=== PATIENT | female | born 1995 | race Caucasian/White ===

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

== ENCOUNTER 2017-01-07 12:23 | Emergency (ER) | payer MEDICAID ==
[2017-01-07 12:32] VITALS: BP 144/89
[2017-01-07 12:49] LABS: BASOPHILS # (AUTO) 0.1 10^3/uL (0.0-0.1); BASOPHILS % (AUTO) 1.1 %; EOSINOPHILS # (AUTO) 0.3 10^3/uL (0.0-0.7); EOSINOPHILS % (AUTO) 3.5 %; HCT - HEMATOCRIT 37.8 % (37.0-47.0); HGB - HEMOGLOBIN 12.4 g/dL (12.0-16.0); LYMPHOCYTES # (AUTO) 3.1 10^3/uL (1.5-3.5); LYMPHOCYTES % (AUTO) 40.9 %; MEAN CORPUSCULAR HEMOGLOBIN 25.9 pg (27.0-31.0); MEAN CORPUSCULAR HGB CONC 32.7 g/dL (32.0-36.0); MEAN CORPUSCULAR VOLUME 79.3 fL (81.0-99.0); MEAN PLATELET VOLUME 8.7 fL (7.9-10.8); MONOCYTES # (AUTO) 0.5 10^3/uL (0.0-1.0); MONOCYTES % (AUTO) 6.7 %; NEUTROPHILS # (AUTO) 3.6 10^3/uL (1.5-6.6); NEUTROPHILS % (AUTO) 47.8 %; NUCLEATED RED BLOOD CELLS AUTO 0.1 /100WBC; RED BLOOD COUNT 4.77 10^6/uL (4.20-5.40); RED CELL DISTRIBUTION WIDTH 13.1 % (12.0-15.0); UNCORRECTED WHITE BLOOD COUNT 7.5 x10^3/uL; WHITE BLOOD COUNT 7.5 x10^3/uL (4.8-10.8)
[2017-01-07 12:57] LABS: HCG UR QUAL NEGATIVE
--- NOTE | 2017-01-07 13:01 | ED Physician Documentation ---
PD HPI FEMALE - Stated complaint Stated Complaint: FEMALE - Chief complaint Chief Complaint: Abd Pain - History obtained from History obtained from: Patient - History of Present Illness Pain level max: 5 Pain level max: 3 Associated symptoms: No: Fever, Dysuria, Urinary frequency, Hematuria Similar symptoms before: Diagnosis (PCOS) - Additional information Additional information: Patient is a 21-year-old female who presents to the emergency department with several months worth of intermittent vaginal bleeding, off of her menstrual cycle. States she saw her primary care provider was started on control pills but is now stopped this the bleeding is returned. Saw gynecology yesterday who prescribed her new medication which she has not picked up from the pharmacy yet. Has continued bleeding today so came for evaluation. States had an ultrasound a week ago which revealed polycystic ovaries. She denies any . States occasionally feels lightheaded, but not lightheaded currently. Has had no syncopal events. 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 HEENT: Other Psych: Depression, Bipolar disorder - Past Surgical History Past Surgical History: Yes General: Cholecystectomy Ortho: Arthroscopic surgery HEENT: Tonsil/Adenoidectomy - Present Medications Home Medications: Ambulatory Orders Medication Instructions Recorded Confirmed metFORMIN [Glucophage] 500 mg PO DAILY 07/17/16 01/07/17 Folic Acid 4 mg PO DAILY 09/25/16 01/07/17 buPROPion [Wellbutrin Sr] 100 mg PO BID 01/07/17 01/07/17 - Allergies Allergies/Adverse Reactions: Allergies Allergy/AdvReac Type Severity Reaction Status Date / Time Penicillins Allergy Hives Verified 01/07/17 12:32 Sulfa (Sulfonamide AdvReac Intermediate Rash Verified 01/07/17 12:32 Antibiotics) - Social History Does the pt smoke?: No Smoking Status: Never smoker Does the pt drink ETOH?: No Does the pt have substance abuse?: No - Immunizations Immunizations are current?: Yes - POLST Patient has POLST: No PD ED PE NORMAL - Vitals Vital signs reviewed: Yes - General General: Alert and oriented X 3, No acute distress, Well developed/nourished - HEENT HEENT: PERRL, Moist mucous membranes - Neck Neck: Supple, no meningeal sign - Cardiac Cardiac: RRR, Strong equal pulses - Respiratory Respiratory: No respiratory distress, Clear bilaterally - Abdomen Abdomen: Soft, Non tender, Non distended - Derm Derm: Warm and dry - Neuro Neuro: Alert and oriented X 3 - Psych Psych: Normal mood, Normal affect Results - Vitals Vitals: Vital Signs - 24 hr 01/07/17 12:29 Temperature 36.8 C Heart Rate 82 Respiratory 16 Rate Blood Pressure 144/89 H O2 Saturation 99 Oxygen O2 Source Room air - Labs Labs: Laboratory Tests 01/07/17 01/07/17 01/07/17 12:32 12:45 12:45 WBC 7.5 RBC 4.77 Hgb 12.4 Hct 37.8 MCV 79.3 L MCH 25.9 L MCHC 32.7 RDW 13.1 Plt Count 305 MPV 8.7 Neut # 3.6 Lymph # 3.1 [place] # 0.5 Eos # 0.3 Baso # 0.1 Absolute Nucleated RBC 0.01 Nucleated RBC % 0.1 Sodium 138 Potassium 3.7 Chloride 104 Carbon Dioxide 25 Anion Gap 9.0 BUN 18 Creatinine 0.9 Estimated GFR (MDRD) 81 L Glucose 118 H Calcium 9.6 Total Bilirubin 0.5 AST 26 ALT 30 Alkaline Phosphatase 55 Total Protein 7.8 Albumin 4.4 Globulin 3.4 Albumin/Globulin Ratio 1.3 Lipase 13 L Ur Specific [place] 1.020 Urine HCG, Qual NEGATIVE PD MEDICAL DECISION MAKING - ED course Complexity details: reviewed results, re-evaluated patient, considered differential, d/w patient, d/w marketing database consultant ED course: Patient is a 21-year-old female who presents to the emergency department with continued menorrhagia. She saw gynecology yesterday, normal hemoglobin today. She is well-appearing, nontoxic. Afebrile. No syncope. Discussed the case with Dr. Bhatti, gynecology who rewrote her prescription for her and will follow up in the office. Prescription was handed to the patient. Patient counseled regarding signs and symptoms for which I believe and urgent re-evaluation would be necessary. Patient with good understanding of and agreement to plan and is comfortable going home at this time This document was made in part using voice recognition software. While efforts are made to proofread this document, sound alike and grammatical errors may occur. Departure - Departure Disposition: 01 Home, Self Care Clinical Impression: Menorrhagia Qualifiers: Menorrahagia type: with irregular cycle Qualified Code(s): N92.1 - Excessive and frequent menstruation with irregular cycle Condition: Good Instructions: ED Bleeding Menstrual Heavy Follow-Up: Veronica Hong ARNP [Primary Care Provider] - Clifford Bhatti MD [Provider Admit Priv/Credential] - Comments: Follow up as directed by Dr. Bhatti today. Your blood counts are normal Discharge Date/Time: 01/07/17 13:23
[2017-01-07 13:02] LABS: ALBUMIN/GLOBULIN RATIO 1.3 (1.0-2.2); BILIRUBIN,TOTAL 0.5 mg/dL (0.2-1.0); CALCIUM 9.6 mg/dL (8.5-10.3); CREATININE 0.9 mg/dL (0.4-1.0); POTASSIUM 3.7 mmol/L (3.5-5.0); TOTAL PROTEIN 7.8 g/dL (6.7-8.2)
== END 2017-01-07 13:23 | disposition home or self-care (01) ==
LOC: ED 12:23
DX: N92.1 Excessive and frequent menstruation with irregular cycle (principal)
CPT/HCPCS: 36415; 80053; 81025; 83690; 85025; 99282; 99283

== ENCOUNTER 2017-02-03 13:25 | Outpatient (CLI) | payer MEDICAID, OTHER | END 2017-02-03 13:26 | disposition home or self-care (01) | LOC: LAB.R 13:25 | PROVIDERS: ATTEND Nurse Practitioner Family | DX: N76.0 Acute vaginitis (principal) | CPT/HCPCS: 87070; 87205; 87491; 87591 ==

== ENCOUNTER 2017-02-15 17:03 | Emergency (ER) | payer MEDICAID ==
[2017-02-15] MEDS ORDERED: BENZONATATE 100 MG CAPSULE PO STA (17:19)
--- NOTE | 2017-02-15 17:21 | ED Physician Documentation ---
PD HPI URI - Stated complaint Stated Complaint: COUGH/THROAT PAIN - Chief complaint Chief Complaint: Resp - History obtained from History obtained from: Patient - History of Present Illness Timing - onset: Other (3 days of productive cough with green sputum and some shortness of breath as well as posttussive emesis and chills but no fevers. She is trying to get . She is currently on metronidazole for bacterial vaginosis.) Review of Systems Constitutional: reports: Chills, Fatigue. denies: Fever Ears: denies: Ear pain Nose: reports: Rhinorrhea / runny nose, Congestion Throat: reports: Sore throat Cardiac: reports: Chest pain / pressure (Only with coughing) Respiratory: reports: Cough GI: reports: Vomiting. 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 HEENT: Other Psych: Depression, Bipolar disorder Other Past Medical History: PCOS - Past Surgical History Past Surgical History: Yes General: Cholecystectomy Ortho: Arthroscopic surgery HEENT: Tonsil/Adenoidectomy - Present Medications Home Medications: Ambulatory Orders Medication Instructions Recorded Confirmed metFORMIN [Glucophage] 500 mg PO DAILY 07/17/16 01/07/17 Folic Acid 4 mg PO DAILY 09/25/16 01/07/17 buPROPion [Wellbutrin Sr] 100 mg PO BID 01/07/17 01/07/17 Azithromycin [Zithromax] 250 mg PO DAILY #4 tablet 02/15/17 Benzonatate [Tessalon] 200 mg PO TID PRN #20 capsule 02/15/17 - Allergies Allergies/Adverse Reactions: Allergies Allergy/AdvReac Type Severity Reaction Status Date / Time Penicillins Allergy Hives Verified 02/15/17 17:15 Sulfa (Sulfonamide AdvReac Intermediate Rash Verified 02/15/17 17:15 Antibiotics) - Social History Does the pt smoke?: No Smoking Status: Never smoker Does the pt drink ETOH?: No Does the pt have substance abuse?: No - Immunizations Immunizations are current?: Yes - POLST Patient has POLST: No PD ED PE NORMAL - Vitals Vital signs reviewed: Yes (Tachycardic) - General General: Alert and oriented X 3, No acute distress - HEENT HEENT: PERRL, EOMI, Other (Sclerosis of the right TM especially from prior otitis media and tubes, but no active otitis media.) - Neck Neck: Supple, no meningeal sign, No bony TTP - Cardiac Cardiac: RRR, No murmur - Respiratory Respiratory: No respiratory distress, Clear bilaterally - Abdomen Abdomen: Soft, Non tender - Derm Derm: Normal color, Warm and dry, No rash - Extremities Extremities: No edema, No calf tenderness / cord - Neuro Neuro: Alert and oriented X 3, Normal speech Results - Vitals Vitals: Vital Signs - 24 hr 02/15/17 02/15/17 17:12 17:44 Temperature 36.9 C 36.8 C Heart Rate 122 H 73 Respiratory 20 18 Rate Blood Pressure 132/71 H 128/56 L O2 Saturation 100 100 Oxygen O2 Source Room air - Labs Labs: Laboratory Tests 02/15/17 17:23 Ur Specific [place] >=1.030 H Urine HCG, Qual NEGATIVE - Rads (name of study) 2v chest Radiology: EMP read contemporaneously (bronchitis with RLL PNA) Departure - Departure Disposition: 01 Home, Self Care Clinical Impression: Pneumonia Qualifiers: Pneumonia type: due to unspecified organism Laterality: right Lung location: lower lobe of lung Qualified Code(s): J18.1 - Lobar pneumonia, unspecified organism Condition: Good Record reviewed to determine appropriate education?: Yes Instructions: Pneumonia Dc Prescriptions: Azithromycin [Zithromax] 250 mg PO DAILY #4 tablet Benzonatate [Tessalon] 200 mg PO TID PRN #20 capsule PRN Reason: Cough Comments: Followup with your doctor in about 3 days, return if worse.
[2017-02-15] MEDS ORDERED: BENZONATATE 100 MG CAPSULE PO ONE (17:32)
[2017-02-15 17:35] LABS: HCG UR QUAL NEGATIVE
--- NOTE | 2017-02-15 17:54 | XRAY Preliminary Report ---
Exam: XR CHEST 2 VIEW PA/LAT IMPRESSION: 1. Bilateral central bronchial wall thickening to be compatible with reactive airways disease or bron chitis. 2. Probable mild superimposed right lower lobe pneumonia. [facility] SITE ID: [id number]
--- NOTE | 2017-02-15 17:57 | XRAY Report ---
EXAM: CHEST RADIOGRAPHY EXAM DATE: 02/15/2017 05:44 PM. CLINICAL HISTORY: Cough, wait for preg test. COMPARISON: None. TECHNIQUE: 2 views. FINDINGS: Lungs/Pleura: Bilateral central bronchial wall thickening could be compatible with reactive airways d isease or bronchitis. Superimposed hazy right lower lobe opacities could reflect pneumonia. No focal left-sided consolidation seen. No pleural effusion or pneumothorax. Mediastinum: Heart and mediastinal contours are unremarkable. Other: None. IMPRESSION: 1. Bilateral central bronchial wall thickening to be compatible with reactive airways disease or bron chitis. 2. Probable mild superimposed right lower lobe pneumonia. [facility] Referring Provider Line: [phone] SITE ID: [id number]
[2017-02-15] MEDS ORDERED: AZITHROMYCIN 250 MG TABLET PO STA (18:14)
[2017-02-15] MEDS ORDERED: AZITHROMYCIN 250 MG TABLET PO ONE ×2 (18:28→18:39)
[2017-02-15 18:42] VITALS: BP 124/60
== END 2017-02-15 18:40 | disposition home or self-care (01) ==
LOC: ED 17:03
DX: J18.9 Pneumonia, unspecified organism (principal)
CPT/HCPCS: 71020; 81025; 99283; A9270

== ENCOUNTER 2017-03-05 15:48 | Outpatient (CLI) | payer MEDICAID | END 2017-03-05 15:49 | disposition home or self-care (01) | LOC: LAB 15:48 | PROVIDERS: ATTEND Obstetrics & Gynecology | DX: N97.0 Female infertility associated with anovulation (principal) | CPT/HCPCS: 36415; 84144 ==

== ENCOUNTER 2017-06-03 17:07 | Outpatient (CLI) | payer MEDICAID ==
[2017-06-03 18:02] LABS: HB2 TOTAL 13.8 g/dL; HEMOGLOBIN A1C 0.51 g/dL; HEMOGLOBIN A1C % 5.5 % (4.6-6.2)
== END 2017-06-03 17:08 | disposition home or self-care (01) ==
LOC: LAB 17:07
PROVIDERS: ATTEND Obstetrics & Gynecology
DX: Z13.1 Encounter for screening for diabetes mellitus (principal)
CPT/HCPCS: 36415; 83036

== ENCOUNTER 2017-06-13 11:34 | Emergency (ER) | payer MEDICAID ==
[2017-06-13 12:16] LABS: BILIRUBIN,URINE NEGATIVE (NEGATIVE); GLUCOSE, URINE (UA) NEGATIVE (NEGATIVE); KETONES,URINE (UA) NEGATIVE (NEGATIVE); LEUKOCYTE ESTERASE, URINE NEGATIVE (NEGATIVE); NITRITE,URINE NEGATIVE (NEGATIVE); OCCULT BLOOD,URINE NEGATIVE (NEGATIVE); PH,URINE 7.5 PH (5.0-7.5); PROTEIN,URINE NEGATIVE (NEGATIVE); UROBILINOGEN,URINE 0.2 (NORMAL) E.U./dL (NORMAL)
[2017-06-13 12:21] LABS: CLARITY,URINE CLEAR (CLEAR); HCG UR QUAL NEGATIVE
[2017-06-13] MEDS ORDERED: SODIUM CHLORIDE 0.9% 1,000 ML IV ONE ×2 (12:38→13:07)
[2017-06-13 12:48] LABS: BASOPHILS # (AUTO) 0.1 10^3/uL (0.0-0.1); BASOPHILS % (AUTO) 0.6 %; EOSINOPHILS % (AUTO) 0.2 %; HGB - HEMOGLOBIN 12.4 g/dL (12.0-16.0); LYMPHOCYTES # (AUTO) 2.7 10^3/uL (1.5-3.5); LYMPHOCYTES % (AUTO) 18.7 %; MEAN CORPUSCULAR HGB CONC 32.8 g/dL (32.0-36.0); MEAN CORPUSCULAR VOLUME 76.2 fL (81.0-99.0); MEAN PLATELET VOLUME 8.6 fL (7.9-10.8); MONOCYTES # (AUTO) 0.8 10^3/uL (0.0-1.0); MONOCYTES % (AUTO) 5.5 %; PLT - PLATELET COUNT 376 10^3/uL (130-450); RED BLOOD COUNT 4.95 10^6/uL (4.20-5.40); RED CELL DISTRIBUTION WIDTH 14.2 % (12.0-15.0); WHITE BLOOD COUNT 14.6 x10^3/uL (4.8-10.8)
[2017-06-13 13:05] LABS: ALBUMIN 4.5 g/dL (3.2-5.5); ALBUMIN/GLOBULIN RATIO 1.3 (1.0-2.2); BILIRUBIN,TOTAL 0.6 mg/dL (0.2-1.0); CALCIUM 9.4 mg/dL (8.5-10.3); CREATININE 0.8 mg/dL (0.4-1.0); TOTAL PROTEIN 8.1 g/dL (6.7-8.2)
[2017-06-13] MEDS ORDERED: ONDANSETRON 4 MG/2 ML VIAL IVP STA (13:07)
--- NOTE | 2017-06-13 13:12 | ED Physician Documentation ---
PD HPI ABD PAIN - Stated complaint Stated Complaint: ABD PX/VOMITING/SHAKEY - Chief complaint Chief Complaint: Abd Pain - History obtained from History obtained from: Patient - History of Present Illness Timing - onset: Last night (Was drinking etoh heavy last night. Started vomiting last night and today with persistent vomiting, no blood. 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, Other HEENT: Other Psych: Depression, Bipolar disorder - Past Surgical History Past Surgical History: Yes General: Cholecystectomy Ortho: Arthroscopic surgery HEENT: Tonsil/Adenoidectomy - Present Medications Home Medications: Ambulatory Orders Medication Instructions Recorded Confirmed metFORMIN [Glucophage] 500 mg PO DAILY 07/17/16 03/19/17 Folic Acid 4 mg PO DAILY 09/25/16 01/07/17 buPROPion [Wellbutrin Sr] 100 mg PO BID 01/07/17 03/19/17 Ondansetron HCl [Zofran] 4 mg PO Q6H PRN #10 tablet 06/13/17 - Allergies Allergies/Adverse Reactions: Allergies Allergy/AdvReac Type Severity Reaction Status Date / Time Penicillins Allergy Hives Verified 06/13/17 11:47 Sulfa (Sulfonamide AdvReac Intermediate Rash Verified 06/13/17 11:47 Antibiotics) - Social History Does the pt smoke?: No Smoking Status: Never smoker Does the pt drink ETOH?: No Does the pt have substance abuse?: No - Immunizations Immunizations are current?: Yes - POLST Patient has POLST: No PD ED PE NORMAL - Vitals Vital signs reviewed: Yes - General General: Alert and oriented X 3, No acute distress - HEENT HEENT: Pharynx benign - Neck Neck: Supple, no meningeal sign, No bony TTP - Cardiac Cardiac: RRR, No murmur - Respiratory Respiratory: No respiratory distress, Clear bilaterally - Abdomen Abdomen: Normal bowel sounds, Soft, Non tender - Neuro Neuro: Alert and oriented X 3, Normal speech Results - Vitals Vitals: Vital Signs - 24 hr 06/13/17 11:44 Temperature 36.9 C Heart Rate 115 H Respiratory 22 Rate Blood Pressure 147/95 H O2 Saturation 99 Oxygen O2 Source Room air - Labs Labs: Laboratory Tests 06/13/17 06/13/17 06/13/17 12:00 12:30 12:30 WBC 14.6 H RBC 4.95 Hgb 12.4 Hct 37.7 MCV 76.2 L MCH 25.0 L MCHC 32.8 RDW 14.2 Plt Count 376 MPV 8.6 Neut # 11.0 H Lymph # 2.7 [place] # 0.8 Eos # 0.0 Baso # 0.1 Absolute Nucleated RBC 0.02 Nucleated RBC % 0.1 Sodium 137 Potassium 3.8 Chloride 104 Carbon Dioxide 22 Anion Gap 11.0 BUN 12 Creatinine 0.8 Estimated GFR (MDRD) 91 Glucose 99 Calcium 9.4 Total Bilirubin 0.6 AST 40 ALT 42 Alkaline Phosphatase 62 Total Protein 8.1 Albumin 4.5 Globulin 3.6 Albumin/Globulin Ratio 1.3 Lipase 10 L Urine Color YELLOW Urine Clarity CLEAR Urine pH 7.5 Ur Specific [place] 1.020 Urine Protein NEGATIVE Urine Glucose (UA) NEGATIVE Urine Ketones NEGATIVE Urine Occult Blood NEGATIVE Urine Nitrite NEGATIVE Urine Bilirubin NEGATIVE Urine Urobilinogen 0.2 (NORMAL) Ur Leukocyte Esterase NEGATIVE Ur Microscopic Review NOT INDICATED Urine Culture Comments NOT INDICATED Urine HCG, Qual NEGATIVE PD MEDICAL DECISION MAKING - ED course ED course: This is a 22-year-old woman with what seems like a hangover, she is administered IV fluids and Zofran with relief of her symptoms and tachycardia and passed an oral challenge. She is advised not to drink so heavily in the future. Departure - Departure Disposition: 01 Home, Self Care Clinical Impression: Hangover Qualifiers: Complication of substance-induced condition: uncomplicated Qualified Code(s): F10.120 - Alcohol abuse with intoxication, uncomplicated Condition: Good Record reviewed to determine appropriate education?: Yes Instructions: ED Nausea Vomiting Prescriptions: Ondansetron HCl [Zofran] 4 mg PO Q6H PRN #10 tablet PRN Reason: Nausea / Vomiting Comments: Your blood pressure was elevated today on check into the emergency department. This does not mean that you have hypertension, it is a common phenomenon to come to the emergency department and have elevated blood pressure. I recommend that you see your primary care physician within the week to have it rechecked when you are feeling better.
[2017-06-13 14:11] VITALS: BP 122/66
== END 2017-06-13 14:25 | disposition home or self-care (01) ==
LOC: ED 11:34
DX: F10.120 Alcohol abuse with intoxication, uncomplicated (principal); R03.0 Elevated blood-pressure reading, without diagnosis of hypertension
CPT/HCPCS: 36415; 80053; 81001; 81003; 81025; 83690; 85025; 87086; 96361; 96374; 99283

== ENCOUNTER 2017-08-29 22:25 | Emergency (ER) | payer MEDICAID ==
[2017-08-29 22:30] VITALS: BP 138/75
--- NOTE | 2017-08-29 22:37 | ED Physician Documentation ---
PD HPI HEENT - Stated complaint Stated Complaint: SOA/SORE THROAT - Chief complaint Chief Complaint: Heent - History obtained from History obtained from: Patient - History of Present Illness Timing - onset: Yesterday Timing - details: Abrupt onset (feeling of something in her throat. Not aware of unusual food. no choking symptoms. Normal voice and breathing. No prior similar. She has not had allergy symptoms nor infection symptoms (fever, nodes, nasal drainage).), Still present Associated symptoms: No: Fever, Congestion, Rhinorrhea, Swollen nodes Similar symptoms before: Diagnosis (has had strep throat in the past, with similar discomfort.) Recently seen: Not recently seen Review of Systems Constitutional: denies: Fever, Chills Nose: denies: Rhinorrhea / runny nose, Congestion Throat: reports: Sore throat Cardiac: denies: Chest pain / pressure, Palpitations Respiratory: denies: Dyspnea, Cough Neurologic: denies: Difficulty speaking PD PAST MEDICAL HISTORY - Past Medical History Cardiovascular: None Respiratory: None GI: Cholelithiasis, 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, Other HEENT: Other Psych: Depression, Bipolar disorder - Past Surgical History Past Surgical History: Yes General: Cholecystectomy Ortho: Arthroscopic surgery HEENT: Tonsil/Adenoidectomy - Present Medications Home Medications: Ambulatory Orders Medication Instructions Recorded Confirmed metFORMIN [Glucophage] 500 mg PO DAILY 07/17/16 03/19/17 Folic Acid 4 mg PO DAILY 09/25/16 01/07/17 buPROPion [Wellbutrin Sr] 100 mg PO BID 01/07/17 03/19/17 Ondansetron HCl [Zofran] 4 mg PO Q6H PRN #10 tablet 06/13/17 Cetirizine [ZyrTEC] 10 mg PO DAILY #20 tablet 08/29/17 Dexamethasone [Decadron] 4 mg PO DAILY #5 tablet 08/29/17 diphenhydrAMINE HCl 25 mg PO Q6H PRN #240 ml 08/29/17 [Diphenhydramine HCl] - Allergies Allergies/Adverse Reactions: Allergies Allergy/AdvReac Type Severity Reaction Status Date / Time Penicillins Allergy Hives Verified 08/29/17 22:30 Sulfa (Sulfonamide AdvReac Intermediate Rash Verified 08/29/17 22:30 Antibiotics) - Social History Does the pt smoke?: No Smoking Status: Never smoker Does the pt drink ETOH?: No Does the pt have substance abuse?: No - Immunizations Immunizations are current?: Yes - POLST Patient has POLST: No PD ED PE NORMAL - Vitals Vital signs reviewed: Yes - General General: Alert and oriented X 3, No acute distress, Well developed/nourished - HEENT HEENT: Ears normal, Moist mucous membranes, Dentition benign. No: Pharynx benign (minimal edema without redness nor exudate of uvula. Rest of mouth (gums , lips, palatte) without edema nor redness. ) - Neck Neck: Supple, no meningeal sign, No adenopathy - Cardiac Cardiac: RRR, No murmur - Respiratory Respiratory: Clear bilaterally - Neuro Neuro: Alert and oriented X 3, No motor deficit, No sensory deficit, Normal speech Eye Opening: Spontaneous Motor: Obeys Commands Verbal: Oriented GCS Score: 15 - Psych Psych: Normal mood. No: Normal affect (somewhat anxious) Results - Vitals Vitals: Oxygen O2 Source Room air PD MEDICAL DECISION MAKING - ED course Complexity details: considered differential (discomfort is upper espoahgus area so out of visible area on regular exam. Most likely irritation or allergy. Less likely infection. Even more unlikely to be polyp/tumor/etc, but that is what she is anxious about, having googled the problem. Will give referral to ENT if it is not resolving. ), d/w patient - Sepsis Event Vital Signs: Oxygen O2 Source Room air Departure - Departure Disposition: 01 Home, Self Care Clinical Impression: Throat discomfort Condition: Stable Record reviewed to determine appropriate education?: Yes Follow-Up: Veronica Hong ARNP [Primary Care Provider] - [facility] [Provider Group] Prescriptions: Cetirizine [ZyrTEC] 10 mg PO DAILY #20 tablet Dexamethasone [Decadron] 4 mg PO DAILY #5 tablet diphenhydrAMINE HCl [Diphenhydramine HCl] 25 mg PO Q6H PRN #240 ml PRN Reason: Pain Comments: Drink lots of fluids. In discomfort like this is often some local inflammation from allergies or perhaps a viral infection. Treated with antihistamine long- acting cetirizine and also short acting Benadryl liquid with swish and swallow for that. Also Decadron steroid anti-inflammatory for the next 5 days. If this has not improved over the next few days, call ENT specialist for further evaluation. They have the tools to be able to look down the back of the throat to look for other causes. Discharge Date/Time: 08/29/17 23:22
[2017-08-29] MEDS ORDERED: CETIRIZINE 10 MG TABLET PO STA (23:03)
[2017-08-29] MEDS ORDERED: DEXAMETHASONE 10 MG/ML VIAL PO STA (23:03)
[2017-08-29] MEDS ORDERED: diphenhydrAMINE ELIXIR 25 MG/10 ML UDC PO STA (23:03)
[2017-08-29] MEDS ORDERED: CHERRY SYRUP 10 ML UDC PO ONE (23:28)
== END 2017-08-29 23:22 | disposition home or self-care (01) ==
LOC: ED 22:25
DX: J02.9 Acute pharyngitis, unspecified (principal)
CPT/HCPCS: 99283; A9270

== ENCOUNTER 2017-10-16 23:16 | Emergency (ER) | payer MEDICAID ==
[2017-10-17 00:03] LABS: BILIRUBIN,URINE NEGATIVE (NEGATIVE); GLUCOSE, URINE (UA) NEGATIVE (NEGATIVE); KETONES,URINE (UA) NEGATIVE (NEGATIVE); LEUKOCYTE ESTERASE, URINE NEGATIVE (NEGATIVE); NITRITE,URINE NEGATIVE (NEGATIVE); OCCULT BLOOD,URINE NEGATIVE (NEGATIVE); PH,URINE 5.5 PH (5.0-7.5); PROTEIN,URINE TRACE mg/dL (NEGATIVE); UROBILINOGEN,URINE 0.2 (NORMAL) E.U./dL (NORMAL)
[2017-10-17 00:07] LABS: CLARITY,URINE CLEAR (CLEAR); HCG UR QUAL NEGATIVE
--- NOTE | 2017-10-17 00:13 | ED Physician Documentation ---
PD HPI ABD PAIN - Stated complaint Stated Complaint: ABD/BACK PAIN - Chief complaint Chief Complaint: Abd Pain - History obtained from History obtained from: Patient - History of Present Illness Timing - onset: Enter time (21:00), Today Timing - details: Abrupt onset Pain level now: 5 Quality: Pain Location: RUQ, Epigastric Radiation: Left flank, Right flank, Upper back Improved by: Other (nothing) Worsened by: Other (movement, PO intake) Associated symptoms: Nausea, Vomiting, Diarrhea. No: Fever Recently seen: Not recently seen - Additional information Additional information: Since 9 PM tonight, patient has had upper abdominal pain radiating to back around both flanks. She has had nausea but no vomiting. She has profuse, watery diarrhea. 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 HEENT: Other Psych: Depression, Bipolar disorder Derm: None - Past Surgical History Past Surgical History: Yes General: Cholecystectomy Ortho: Arthroscopic surgery HEENT: Tonsil/Adenoidectomy - Present Medications Home Medications: Ambulatory Orders Medication Instructions Recorded Confirmed metFORMIN [Glucophage] 500 mg PO DAILY 07/17/16 03/19/17 Folic Acid 4 mg PO DAILY 09/25/16 01/07/17 buPROPion [Wellbutrin Sr] 100 mg PO BID 01/07/17 03/19/17 Ondansetron HCl [Zofran] 4 mg PO Q6H PRN #10 tablet 06/13/17 Cetirizine [ZyrTEC] 10 mg PO DAILY #20 tablet 08/29/17 Dexamethasone [Decadron] 4 mg PO DAILY #5 tablet 08/29/17 diphenhydrAMINE HCl 25 mg PO Q6H PRN #240 ml 08/29/17 [Diphenhydramine HCl] Promethazine [Phenergan] 25 - 50 mg PO Q6H PRN #14 tab 10/17/17 Vancomycin [Vancocin] 125 mg PO QID 10 Days #40 capsule 10/17/17 oxyCODONE [Roxicodone] 5 - 10 mg PO Q6H PRN #14 tablet 10/17/17 - Allergies Allergies/Adverse Reactions: Allergies Allergy/AdvReac Type Severity Reaction Status Date / Time Penicillins Allergy Hives Verified 10/17/17 19:20 Sulfa (Sulfonamide AdvReac Intermediate Rash Verified 10/17/17 19:20 Antibiotics) - Social History Does the pt smoke?: No Smoking Status: Never smoker Does the pt drink ETOH?: No Does the pt have substance abuse?: No - Immunizations Immunizations are current?: Yes - POLST Patient has POLST: No PD ED PE NORMAL - Vitals Vital signs reviewed: Yes - General General: Alert and oriented X 3, No acute distress, Well developed/nourished - HEENT HEENT: Moist mucous membranes - Neck Neck: Supple, no meningeal sign - Cardiac Cardiac: RRR, No murmur - Respiratory Respiratory: No respiratory distress, Clear bilaterally - Abdomen Abdomen: Soft, Non distended, Other (mild tenderness in epigastrium without rebound or guarding) - Back Back: No CVA TTP - Derm Derm: Normal color, Warm and dry - Extremities Extremities: No edema Results - Vitals Vitals: Vital Signs - 24 hr 10/16/17 10/16/17 10/16/17 23:25 23:33 23:57 Temperature 36.8 C Heart Rate 82 91 Respiratory 17 17 17 Rate Blood Pressure 139/95 H 142/93 H 132/58 H O2 Saturation 100 100 10/17/17 10/17/17 10/17/17 00:09 00:51 01:02 Temperature Heart Rate 99 Respiratory 17 17 16 Rate Blood Pressure 128/75 O2 Saturation 99 10/17/17 10/17/17 10/17/17 01:20 02:21 03:01 Temperature 37.4 C Heart Rate 96 Respiratory 16 16 15 Rate Blood Pressure 124/72 O2 Saturation 100 10/17/17 10/17/17 10/17/17 03:35 04:28 05:02 Temperature Heart Rate 110 H Respiratory 15 19 15 Rate Blood Pressure 135/67 H O2 Saturation 100 10/17/17 10/17/17 10/17/17 05:53 06:06 06:37 Temperature Heart Rate 91 Respiratory 16 16 17 Rate Blood Pressure 126/74 O2 Saturation 98 Oxygen O2 Source Room air - Labs Labs: Microbiology 10/16/17 23:40 Clostridium difficile (PCR) - Final Stool 10/16/17 23:40 Campylobacter Antigen Assay - Final Stool Laboratory Tests 10/16/17 10/16/17 10/17/17 23:40 23:40 00:40 WBC 16.2 H RBC 5.29 Hgb 13.1 Hct 39.9 MCV 75.4 L MCH 24.7 L MCHC 32.8 RDW 14.5 Plt Count 347 MPV 8.8 Neut # (Auto) 12.2 H Lymph # (Auto) 2.4 [place] # (Auto) 1.3 H Eos # (Auto) 0.1 Baso # (Auto) 0.2 H Absolute Nucleated RBC 0.00 Nucleated RBC % 0.0 Sodium Potassium Chloride Carbon Dioxide Anion Gap BUN Creatinine Estimated GFR (MDRD) Glucose Calcium Total Bilirubin AST ALT Alkaline Phosphatase Total Protein Albumin Globulin Albumin/Globulin Ratio Lipase Urine Color YELLOW Urine Clarity CLEAR Urine pH 5.5 Ur Specific [place] >=1.030 H >1.030 Urine Protein TRACE Urine Glucose (UA) NEGATIVE Urine Ketones NEGATIVE Urine Occult Blood NEGATIVE Urine Nitrite NEGATIVE Urine Bilirubin NEGATIVE Urine Urobilinogen 0.2 (NORMAL) Ur Leukocyte Esterase NEGATIVE Ur Microscopic Review NOT INDICATED Urine Culture Comments NOT INDICATED Urine HCG, Qual NEGATIVE 10/17/17 00:40 WBC RBC Hgb Hct MCV MCH MCHC RDW Plt Count MPV Neut # (Auto) Lymph # (Auto) [place] # (Auto) Eos # (Auto) Baso # (Auto) Absolute Nucleated RBC Nucleated RBC % Sodium 137 Potassium 3.4 L Chloride 106 Carbon Dioxide 20 L Anion Gap 11.0 BUN 21 H Creatinine 0.9 Estimated GFR (MDRD) 80 L Glucose 119 H Calcium 9.9 Total Bilirubin 0.8 AST 36 ALT 39 Alkaline Phosphatase 65 Total Protein 8.8 H Albumin 4.9 Globulin 3.9 Albumin/Globulin Ratio 1.3 Lipase 19 L Urine Color Urine Clarity Urine pH Ur Specific [place] Urine Protein Urine Glucose (UA) Urine Ketones Urine Occult Blood Urine Nitrite Urine Bilirubin Urine Urobilinogen Ur Leukocyte Esterase Ur Microscopic Review Urine Culture Comments Urine HCG, Qual PD MEDICAL DECISION MAKING - ED course Complexity details: reviewed old records, reviewed results, re-evaluated patient , considered differential, d/w patient ED course: c. diff (+) result.Symptoms improved with IV fluids x 2 liters, zofran, phenergan. lomotil ordered but she had not yet taken it (due to ongoing nausea) and, when clostridium difficile result returned, lomotil was discarded (her diarrhea slowed significantly during ED stay without it). reported good pain relief with small, single dose morphine IV. tolerated ice chips and then sm. liquids PO prior to discharge. per uptodate, vancocin is preferred agent over metronidazole, and this was prescribed. however, metronidazole was given in ED due to the nausea she was having for most of ED stay. - Sepsis Event Vital Signs: Vital Signs - 24 hr 10/16/17 10/16/17 10/16/17 23:25 23:33 23:57 Temperature 36.8 C Heart Rate 82 91 Respiratory 17 17 17 Rate Blood Pressure 139/95 H 142/93 H 132/58 H O2 Saturation 100 100 10/17/17 10/17/17 10/17/17 00:09 00:51 01:02 Temperature Heart Rate 99 Respiratory 17 17 16 Rate Blood Pressure 128/75 O2 Saturation 99 10/17/17 10/17/17 10/17/17 01:20 02:21 03:01 Temperature 37.4 C Heart Rate 96 Respiratory 16 16 15 Rate Blood Pressure 124/72 O2 Saturation 100 10/17/17 10/17/17 10/17/17 03:35 04:28 05:02 Temperature Heart Rate 110 H Respiratory 15 19 15 Rate Blood Pressure 135/67 H O2 Saturation 100 10/17/17 10/17/17 10/17/17 05:53 06:06 06:37 Temperature Heart Rate 91 Respiratory 16 16 17 Rate Blood Pressure 126/74 O2 Saturation 98 Oxygen O2 Source Room air Departure - Departure Disposition: 01 Home, Self Care Clinical Impression: Clostridium difficile colitis Condition: Good Instructions: ED Gastroenteritis Bacterial Follow-Up: Veronica Hong ARNP [Primary Care Provider] - (3-4 days ) Prescriptions: oxyCODONE [Roxicodone] 5 - 10 mg PO Q6H PRN #14 tablet PRN Reason: Pain Promethazine [Phenergan] 25 - 50 mg PO Q6H PRN #14 tab PRN Reason: Nausea / Vomiting Vancomycin [Vancocin] 125 mg PO QID 10 Days #40 capsule Forms: Activity restrictions Discharge Date/Time: 10/17/17 06:39
[2017-10-17] MEDS ORDERED: SODIUM CHLORIDE 0.9% 1,000 ML IV STA ×2 (00:31→05:09)
[2017-10-17] MEDS ORDERED: PHENobarb/HYOSCY/ATROPINE/SCOP 5 ML UDC PO STA (00:32)
[2017-10-17] MEDS ORDERED: LIDOCAINE VISCOUS 2% 15 ML UDC MM STA (00:32)
[2017-10-17] MEDS ORDERED: MAG HYDROX/AL HYDROX/SIMETH 30 ML UDC PO STA (00:32)
[2017-10-17] MEDS ORDERED: ONDANSETRON 4 MG/2 ML VIAL IVP STA (00:33)
[2017-10-17] MEDS ORDERED: DIPHENOX/ATROPINE 2.5/0.025 MG TABLET PO STA (00:33)
[2017-10-17 00:49] LABS: BASOPHILS # (AUTO) 0.2 10^3/uL (0.0-0.1); BASOPHILS % (AUTO) 1.4 %; EOSINOPHILS # (AUTO) 0.1 10^3/uL (0.0-0.7); EOSINOPHILS % (AUTO) 0.5 %; HGB - HEMOGLOBIN 13.1 g/dL (12.0-16.0); LYMPHOCYTES # (AUTO) 2.4 10^3/uL (1.5-3.5); LYMPHOCYTES % (AUTO) 14.5 %; MEAN CORPUSCULAR HEMOGLOBIN 24.7 pg (27.0-31.0); MEAN CORPUSCULAR HGB CONC 32.8 g/dL (32.0-36.0); MEAN CORPUSCULAR VOLUME 75.4 fL (81.0-99.0); MEAN PLATELET VOLUME 8.8 fL (7.9-10.8); MONOCYTES # (AUTO) 1.3 10^3/uL (0.0-1.0); MONOCYTES % (AUTO) 8.2 %; NEUTROPHILS # (AUTO) 12.2 10^3/uL (1.5-6.6); NEUTROPHILS % (AUTO) 75.4 %; PLT - PLATELET COUNT 347 10^3/uL (130-450); RED BLOOD COUNT 5.29 10^6/uL (4.20-5.40); RED CELL DISTRIBUTION WIDTH 14.5 % (12.0-15.0); WHITE BLOOD COUNT 16.2 x10^3/uL (4.8-10.8)
[2017-10-17 01:04] LABS: ALBUMIN 4.9 g/dL (3.2-5.5); ALBUMIN/GLOBULIN RATIO 1.3 (1.0-2.2); BILIRUBIN,TOTAL 0.8 mg/dL (0.2-1.0); CALCIUM 9.9 mg/dL (8.5-10.3); CREATININE 0.9 mg/dL (0.4-1.0); TOTAL PROTEIN 8.8 g/dL (6.7-8.2)
[2017-10-17] MEDS ORDERED: PROMETHAZINE INJ 12.5 MG in SODIUM CHLORIDE 0.9% 50 ML IV STA ×2 (02:16→04:14)
[2017-10-17] MEDS ORDERED: IOPAMIDOL-300 100 ML VIAL ONE (02:25)
[2017-10-17] MEDS ORDERED: metroNIDAZOLE 500 MG/100 ML 500 MG/100 ML BAG IV STA (03:15)
[2017-10-17] MEDS ORDERED: MORPHINE 2 MG/ML SYRINGE IVP STA (04:14)
[2017-10-17 06:07] VITALS: BP 126/74
== END 2017-10-17 06:39 | disposition home or self-care (01) ==
LOC: ED 23:16
DX: A04.72 Enterocolitis due to Clostridium difficile, not specified as recurrent (principal)
CPT/HCPCS: 80053; 81001; 81003; 81025; 83690; 85025; 87045; 87046; 87086; 87493; 96361; 96365; 96368; 96375; 99284; 99285

== ENCOUNTER 2017-10-17 19:13 | Emergency (ER) | payer MEDICAID ==
--- NOTE | 2017-10-17 19:41 | ED Physician Documentation ---
PD HPI FOCAL NEURO - Stated complaint Stated Complaint: LT ARM NUMBNESS/STOMACH PX - Chief complaint Chief Complaint: Neuro - History obtained from History obtained from: Patient - History of Present Illness Timing - onset: Last night (Seen last night and dx c. diff. No recent abx exposure. Woke this AM with numbness of left arm, not involving the face or leg. No headache or neck pain.) Review of Systems Ten Systems: 10 systems reviewed and negative Constitutional: denies: Fever, Chills Cardiac: denies: Chest pain / pressure, Palpitations Respiratory: denies: Dyspnea, Cough GI: reports: Abdominal Pain, Nausea, Diarrhea. 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 HEENT: Other Psych: Depression, Bipolar disorder Derm: None - Past Surgical History Past Surgical History: Yes General: Cholecystectomy Ortho: Arthroscopic surgery HEENT: Tonsil/Adenoidectomy - Present Medications Home Medications: Ambulatory Orders Medication Instructions Recorded Confirmed metFORMIN [Glucophage] 500 mg PO DAILY 07/17/16 03/19/17 Folic Acid 4 mg PO DAILY 09/25/16 01/07/17 buPROPion [Wellbutrin Sr] 100 mg PO BID 01/07/17 03/19/17 Ondansetron HCl [Zofran] 4 mg PO Q6H PRN #10 tablet 06/13/17 Cetirizine [ZyrTEC] 10 mg PO DAILY #20 tablet 08/29/17 Dexamethasone [Decadron] 4 mg PO DAILY #5 tablet 08/29/17 diphenhydrAMINE HCl 25 mg PO Q6H PRN #240 ml 08/29/17 [Diphenhydramine HCl] Promethazine [Phenergan] 25 - 50 mg PO Q6H PRN #14 tab 10/17/17 Vancomycin [Vancocin] 125 mg PO QID 10 Days #40 capsule 10/17/17 oxyCODONE [Roxicodone] 5 - 10 mg PO Q6H PRN #14 tablet 10/17/17 - Allergies Allergies/Adverse Reactions: Allergies Allergy/AdvReac Type Severity Reaction Status Date / Time Penicillins Allergy Hives Verified 10/17/17 19:20 Sulfa (Sulfonamide AdvReac Intermediate Rash Verified 10/17/17 19:20 Antibiotics) - Social History Does the pt smoke?: No Smoking Status: Never smoker Does the pt drink ETOH?: No Does the pt have substance abuse?: No - Immunizations Immunizations are current?: Yes - POLST Patient has POLST: No PD ED PE NORMAL - Vitals Vital signs reviewed: Yes - General General: Alert and oriented X 3, No acute distress - HEENT HEENT: PERRL, EOMI - Neck Neck: Supple, no meningeal sign, No bony TTP - Cardiac Cardiac: RRR, No murmur - Respiratory Respiratory: No respiratory distress, Clear bilaterally - Abdomen Abdomen: Normal bowel sounds, Soft, Non tender - Back Back: No CVA TTP, No spinal TTP - Neuro Neuro: Alert and oriented X 3, Other (She has partial numbness of the left arm theoughout the forearm and hand but abruptly stops above the elbow. Good senior planning manager strength. No pronator drift.) Eye Opening: Spontaneous Motor: Obeys Commands Verbal: Oriented GCS Score: 15 - Psych Psych: Normal mood, Normal affect Results - Vitals Vitals: Vital Signs - 24 hr 10/17/17 10/17/17 19:15 20:00 Temperature 36.6 C Heart Rate 89 81 Respiratory 18 18 Rate Blood Pressure 149/96 H 135/82 H O2 Saturation 98 99 Oxygen O2 Source Room air PD MEDICAL DECISION MAKING - ED course ED course: She has numbness from the left elbow down not following a dermatomal pattern is against a radiculopathy. It completely stops above the elbow and she has no numbness in the face or leg. She did have an attempted IV started there last night in the left antecubital fossa that she said immediately hurt and burned around the area so I suspect she has a neuropraxia from that IV attempt. - Sepsis Event Vital Signs: Vital Signs - 24 hr 10/17/17 10/17/17 19:15 20:00 Temperature 36.6 C Heart Rate 89 81 Respiratory 18 18 Rate Blood Pressure 149/96 H 135/82 H O2 Saturation 98 99 Oxygen O2 Source Room air Departure - Departure Disposition: 01 Home, Self Care Clinical Impression: Neuropraxia of left upper extremity Qualifiers: Encounter type: initial encounter Qualified Code(s): S44.92XA - Injury of unspecified nerve at shoulder and upper arm level, left arm, initial encounter Condition: Good Record reviewed to determine appropriate education?: Yes Comments: The numbness in her arm should go away over the days, if it lasts more than a few weeks follow-up with your doctor for a neurology referral. Return if you develop any similar symptoms anywhere besides that arm. Your blood pressure was elevated today on check into the emergency department. This does not mean that you have hypertension, it is a common phenomenon to come to the emergency department and have elevated blood pressure. I recommend that you see your primary care physician within the week to have it rechecked when you are feeling better. Discharge Date/Time: 10/17/17 20:00
[2017-10-17 20:08] VITALS: BP 135/82
== END 2017-10-17 20:00 | disposition home or self-care (01) ==
LOC: ED 19:13
DX: S44.92XA Injury of unspecified nerve at shoulder and upper arm level, left arm, initial encounter (principal); A04.72 Enterocolitis due to Clostridium difficile, not specified as recurrent; R03.0 Elevated blood-pressure reading, without diagnosis of hypertension
CPT/HCPCS: 80053; 81003; 81025; 83690; 85025; 87045; 87046; 87493; 96361; 96365; 96368; 96375; 99282; 99283; 99284; 99285; A9270; J2270; J7040; 36415; 81001; 87086

== ENCOUNTER 2017-11-28 13:14 | Emergency (ER) | payer MEDICAID ==
[2017-11-28 15:04] LABS: BASOPHILS # (AUTO) 0.1 10^3/uL (0.0-0.1); BASOPHILS % (AUTO) 1.2 %; EOSINOPHILS # (AUTO) 0.1 10^3/uL (0.0-0.7); HGB - HEMOGLOBIN 13.2 g/dL (12.0-16.0); LYMPHOCYTES # (AUTO) 2.6 10^3/uL (1.5-3.5); LYMPHOCYTES % (AUTO) 26.3 %; MEAN CORPUSCULAR HEMOGLOBIN 25.4 pg (27.0-31.0); MEAN CORPUSCULAR HGB CONC 33.1 g/dL (32.0-36.0); MEAN CORPUSCULAR VOLUME 76.5 fL (81.0-99.0); MEAN PLATELET VOLUME 8.9 fL (7.9-10.8); MONOCYTES # (AUTO) 0.7 10^3/uL (0.0-1.0); MONOCYTES % (AUTO) 7.5 %; NEUTROPHILS # (AUTO) 6.4 10^3/uL (1.5-6.6); PLT - PLATELET COUNT 361 10^3/uL (130-450); RED CELL DISTRIBUTION WIDTH 14.2 % (12.0-15.0); WHITE BLOOD COUNT 9.9 x10^3/uL (4.8-10.8)
--- NOTE | 2017-11-28 15:05 | ED Physician Documentation ---
History of Present Illness - Stated complaint Stated Complaint: SOA/SHAKY - Chief complaint Chief Complaint: General - History obtained from History obtained from: Patient, Friend - History of Present Illness Timing: Today Pain level max: 0 Pain level now: 0 Improved by: nothing Worsened by: nothing - Additonal information Additional information: Patient is a 22-year-old female who presents to the emergency department stating that for approximately 5 minutes she felt her heart beating fast, her friend thought she looked pale and then she turned red as the symptoms went away. She states that it feels like an anxiety attack. This is happened with increased frequency over the past several weeks. No chest pain. Does not feel her heart skipping a beat, but just beating quickly. Has not seen a doctor for this. Denies any possibility of . She does feel short of breath during the episodes. 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, Other HEENT: Other Psych: Depression, Bipolar disorder Derm: None - Past Surgical History Past Surgical History: Yes General: Cholecystectomy Ortho: Arthroscopic surgery HEENT: Tonsil/Adenoidectomy - Present Medications Home Medications: Ambulatory Orders Medication Instructions Recorded Confirmed Ondansetron HCl [Zofran] 4 mg PO Q6H PRN #10 tablet 06/13/17 Promethazine [Phenergan] 25 - 50 mg PO Q6H PRN #14 tab 10/17/17 - Allergies Allergies/Adverse Reactions: Allergies Allergy/AdvReac Type Severity Reaction Status Date / Time Penicillins Allergy Hives Verified 10/17/17 19:20 Sulfa (Sulfonamide AdvReac Intermediate Rash Verified 11/28/17 13:23 Antibiotics) - Social History Does the pt smoke?: No Smoking Status: Never smoker Does the pt drink ETOH?: No Does the pt have substance abuse?: No - Immunizations Immunizations are current?: Yes - POLST Patient has POLST: No PD ED PE NORMAL - Vitals Vital signs reviewed: Yes - General General: Alert and oriented X 3, No acute distress, Well developed/nourished - HEENT HEENT: PERRL, Moist mucous membranes - Neck Neck: Supple, no meningeal sign - Cardiac Cardiac: RRR, Strong equal pulses - Respiratory Respiratory: No respiratory distress, Clear bilaterally - Abdomen Abdomen: Soft, Non tender, Non distended - Derm Derm: Warm and dry - Extremities Extremities: No edema, No calf tenderness / cord - Neuro Neuro: Alert and oriented X 3 - Psych Psych: Normal mood, Normal affect Results - Vitals Vitals: Vital Signs - 24 hr 11/28/17 11/28/17 11/28/17 13:20 14:50 16:13 Temperature 36.7 C 36.4 C L 36.6 C Heart Rate 101 H 82 82 Respiratory 22 18 16 Rate Blood Pressure 156/89 H 148/72 H 128/72 O2 Saturation 100 100 100 Oxygen O2 Source Room air - EKG (time done) 1339 Rate: Rate (enter#) (92) Rhythm: NSR [place]: Normal Intervals: Normal [place] QRS: Normal Ischemia: Normal ST segments - Labs Labs: Laboratory Tests 11/28/17 11/28/17 11/28/17 14:58 14:58 14:58 WBC 9.9 RBC 5.20 Hgb 13.2 Hct 39.8 MCV 76.5 L MCH 25.4 L MCHC 33.1 RDW 14.2 Plt Count 361 MPV 8.9 Neut # (Auto) 6.4 Lymph # (Auto) 2.6 [place] # (Auto) 0.7 Eos # (Auto) 0.1 Baso # (Auto) 0.1 Absolute Nucleated RBC 0.00 Nucleated RBC % 0.0 Sodium 138 Potassium 3.7 Chloride 107 Carbon Dioxide 24 Anion Gap 7.0 BUN 19 Creatinine 0.8 Estimated GFR (MDRD) 91 Glucose 102 H Calcium 9.7 Phosphorus 2.7 Magnesium 2.2 Total Bilirubin < 0.2 L AST 28 ALT 33 Alkaline Phosphatase 63 Total Protein 8.0 Albumin 4.5 Globulin 3.5 Albumin/Globulin Ratio 1.3 Lipase 35 TSH 2.86 Free T4 11/28/17 14:58 WBC RBC Hgb Hct MCV MCH MCHC RDW Plt Count MPV Neut # (Auto) Lymph # (Auto) [place] # (Auto) Eos # (Auto) Baso # (Auto) Absolute Nucleated RBC Nucleated RBC % Sodium Potassium Chloride Carbon Dioxide Anion Gap BUN Creatinine Estimated GFR (MDRD) Glucose Calcium Phosphorus Magnesium Total Bilirubin AST ALT Alkaline Phosphatase Total Protein Albumin Globulin Albumin/Globulin Ratio Lipase TSH Free T4 0.74 PD MEDICAL DECISION MAKING - ED course Complexity details: reviewed results, re-evaluated patient, considered differential, d/w patient ED course: Patient is a 22-year-old female who presents to the emergency department with anxiety versus palpitations versus arrhythmia. No acute abnormalities on EKG, laboratory testing or telemetry monitoring. Will have her follow-up with her doctor for Holter monitor. She remained asymptomatic throughout her emergency department stay. Patient counseled to avoid stimulants. Patient counseled regarding signs and symptoms for which I believe and urgent re-evaluation would be necessary. Patient with good understanding of and agreement to plan and is comfortable going home at this time This document was made in part using voice recognition software. While efforts are made to proofread this document, sound alike and grammatical errors may occur. - Sepsis Event Vital Signs: Vital Signs - 24 hr 11/28/17 11/28/17 11/28/17 13:20 14:50 16:13 Temperature 36.7 C 36.4 C L 36.6 C Heart Rate 101 H 82 82 Respiratory 22 18 16 Rate Blood Pressure 156/89 H 148/72 H 128/72 O2 Saturation 100 100 100 Oxygen O2 Source Room air Departure - Departure Disposition: 01 Home, Self Care Clinical Impression: Palpitations Condition: Good Instructions: ED Palpitations Follow-Up: Veronica Hong ARNP [Primary Care Provider] - Within 1 week Comments: The cause of your symptoms is unclear today. You should follow-up with your doctor to have a residential monitor placed on you to ensure that this is not an arrhythmia. Avoid caffeine and stimulants. Return if you worsen Forms: Activity restrictions Discharge Date/Time: 11/28/17 16:14
[2017-11-28 15:20] LABS: ALBUMIN 4.5 g/dL (3.2-5.5); ALBUMIN/GLOBULIN RATIO 1.3 (1.0-2.2); ALKALINE PHOSPHATASE 63 IU/L (42-121); ALT ALANINE AMINOTRANSFERASE 33 IU/L (10-60); AST ASPARTATE AMINOTRANSFERASE 28 IU/L (10-42); BILIRUBIN,TOTAL < 0.2 mg/dL (0.2-1.0); BUN - BLOOD UREA NITROGEN 19 mg/dL (6-20); CALCIUM 9.7 mg/dL (8.5-10.3); CARBON DIOXIDE - CO2 24 mmol/L (21-32); CHLORIDE 107 mmol/L (101-111); CREATININE 0.8 mg/dL (0.4-1.0); GFR - MDRD 91 (>89); GLUCOSE 102 mg/dL (70-100); LIPASE 35 U/L (22-51); MAGNESIUM 2.2 mg/dL (1.7-2.8); PHOSPHORUS 2.7 mg/dL (2.5-4.6); SODIUM 138 mmol/L (135-145)
[2017-11-28 16:14] VITALS: BP 128/72
== END 2017-11-28 16:14 | disposition home or self-care (01) ==
LOC: ED 13:14
DX: R00.2 Palpitations (principal)
CPT/HCPCS: 36415; 80053; 83690; 83735; 84100; 84439; 84443; 85025; 93005; 99283

== ENCOUNTER 2018-01-16 23:03 | Emergency (ER) | payer MEDICAID ==
[2018-01-16] MEDS ORDERED: diazePAM 5 MG TABLET PO STA (23:49)
--- NOTE | 2018-01-17 00:43 | ED Physician Documentation ---
History of Present Illness - Stated complaint Stated Complaint: ANXIETY - Chief complaint Chief Complaint: MHE - History obtained from History obtained from: Patient, Family - History of Present Illness Timing: Today - Additonal information Additional information: 22-year-old female with a long history of anxiety and difficulty taking medications secondary to heartburn has significant anxiety related to a split with her and becoming homeless.. She has now been staying at [facility]. She states she has support there and she has not had counseling. She relays information that she has been on Ativan and Xanax and Zoloft and that each 1 of these caused an issue with heartburn. Review of Systems Constitutional: denies: Fever, Chills, Myalgias Eyes: denies: Decreased vision Ears: denies: Ear pain Nose: reports: Congestion. denies: Rhinorrhea / runny nose Throat: denies: Sore throat Cardiac: denies: Chest pain / pressure, Palpitations Respiratory: reports: Cough. denies: Dyspnea GI: reports: Nausea. 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 HEENT: Other Psych: Depression, Anxiety, Bipolar disorder Derm: None - Past Surgical History Past Surgical History: Yes General: Cholecystectomy Ortho: Arthroscopic surgery HEENT: Tonsil/Adenoidectomy - Present Medications Home Medications: Ambulatory Orders Medication Instructions Recorded Confirmed diazePAM [Valium] 5 - 10 mg PO TID PRN #15 tablet 01/17/18 - Allergies Allergies/Adverse Reactions: Allergies Allergy/AdvReac Type Severity Reaction Status Date / Time Penicillins Allergy Hives Verified 01/16/18 23:10 Sulfa (Sulfonamide AdvReac Intermediate Rash Verified 01/16/18 23:10 Antibiotics) - Social History Does the pt smoke?: No Smoking Status: Never smoker Does the pt drink ETOH?: No Does the pt have substance abuse?: No - Immunizations Immunizations are current?: Yes - POLST Patient has POLST: No PD ED PE NORMAL - Vitals Vital signs reviewed: Yes (normal ) - General General: Alert and oriented X 3, No acute distress, Well developed/nourished - HEENT HEENT: Atraumatic, PERRL, EOMI, Ears normal - Neck Neck: Supple, no meningeal sign - Cardiac Cardiac: RRR, No murmur - Respiratory Respiratory: No respiratory distress, Clear bilaterally - Abdomen Abdomen: Soft, Non tender - Back Back: No CVA TTP, No spinal TTP - Derm Derm: Normal color, Warm and dry, No rash - Extremities Extremities: No deformity, No edema - Neuro Neuro: Alert and oriented X 3, 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, No motor deficit, No sensory deficit, Normal speech Eye Opening: Spontaneous Motor: Obeys Commands Verbal: Oriented GCS Score: 15 - Psych Psych: Normal affect, Other (mood is anxious ) Results - Vitals Vitals: Vital Signs - 24 hr 01/16/18 01/17/18 23:08 00:48 Temperature 36.9 C 36.5 C Heart Rate 92 88 Respiratory 15 14 Rate Blood Pressure 129/71 128/74 O2 Saturation 100 100 Oxygen O2 Source Room air PD MEDICAL DECISION MAKING - ED course Complexity details: considered differential, d/w patient ED course: [id number] female with a history of anxiety has had trouble with Ativan and Xanax causing esophageal irritation and she has significant anxiety related to recent events. She is administered Valium 5 mg orally and I have encouraged her to seek counseling through [facility] as she appears to have some difficulty with all medications. Departure - Departure Disposition: 01 Home, Self Care Clinical Impression: Anxiety Condition: Stable Instructions: ED Stress React Follow-Up: Veronica Hong ARNP [Primary Care Provider] - Prescriptions: diazePAM [Valium] 5 - 10 mg PO TID PRN #15 tablet PRN Reason: Spasms Discharge Date/Time: 01/17/18 00:49
[2018-01-17 00:49] VITALS: BP 128/74
== END 2018-01-17 00:49 | disposition home or self-care (01) ==
LOC: ED 23:03
DX: F41.9 Anxiety disorder, unspecified (principal); Z63.79 Other stressful life events affecting family and household; Z59.0 Homelessness
CPT/HCPCS: 99283; A9270

== ENCOUNTER 2018-01-25 08:59 | Emergency (ER) | payer MEDICAID ==
--- NOTE | 2018-01-25 09:43 | ED Physician Documentation ---
PD HPI NVD - Stated complaint Stated Complaint: N/D ABD PX - Chief complaint Chief Complaint: Abd Pain - History obtained from History obtained from: Patient - History of Present Illness Timing - onset: Today Timing - duration: Days Timing - details: Abrupt onset, Still present Associated symptoms: Abdominal pain (cramping pains, with nausea but no vomiting and has had several watery diarrheal movements today. States it feels similar to the C.Diff. she had a few of months ago in October.). No: Fever, Chest pain Contributing factors: No: Sick contact, Bad food, Travel, Recent antibiotics Similar symptoms before: Diagnosis (3 months ago, had C.Diff. colitis and Rx with Flagyl and improved after 1-2 weeks. Had had normal BMs the past couple of months.) Recently seen: Not recently seen Review of Systems Constitutional: denies: Fever, Chills, Myalgias Nose: denies: Rhinorrhea / runny nose, Congestion Throat: denies: Sore throat Respiratory: denies: Cough GI: reports: Abdominal Pain, Nausea, Diarrhea. 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, Other HEENT: Other Psych: Depression, Anxiety, Bipolar disorder Derm: None - Past Surgical History Past Surgical History: Yes General: Cholecystectomy Ortho: Arthroscopic surgery HEENT: Tonsil/Adenoidectomy - Present Medications Home Medications: Ambulatory Orders Medication Instructions Recorded Confirmed diazePAM [Valium] 5 - 10 mg PO TID PRN #15 tablet 01/17/18 Metronidazole [Flagyl] 500 mg PO BID #28 tablet 01/25/18 Naproxen 375 mg PO BID #20 tablet 01/25/18 Ondansetron Odt [Zofran] 4 mg TL Q6H PRN #20 tablet 01/25/18 Promethazine [Phenergan] 25 mg PO Q6H PRN #10 tab 01/25/18 - Allergies Allergies/Adverse Reactions: Allergies Allergy/AdvReac Type Severity Reaction Status Date / Time Penicillins Allergy Hives Verified 01/16/18 23:10 Sulfa (Sulfonamide AdvReac Intermediate Rash Verified 01/16/18 23:10 Antibiotics) - Social History Does the pt smoke?: No Smoking Status: Never smoker Does the pt drink ETOH?: No Does the pt have substance abuse?: No - Immunizations Immunizations are current?: Yes - POLST Patient has POLST: No PD ED PE NORMAL - Vitals Vital signs reviewed: Yes - General General: Alert and oriented X 3, No acute distress, Well developed/nourished - Cardiac Cardiac: RRR, No murmur - Respiratory Respiratory: Clear bilaterally - Abdomen Abdomen: Soft, Non distended, No organomegaly, Other (mildly tender left lower and mid abd. No percussion nor rebound tenderness. ). No: Normal bowel sounds (increased) Results - Vitals Vitals: Vital Signs - 24 hr 01/25/18 01/25/18 09:05 10:14 Temperature 36.5 C 37.0 C Heart Rate 89 95 Respiratory 16 15 Rate Blood Pressure 142/87 H 136/90 H O2 Saturation 97 96 Oxygen O2 Source Room air - Labs Labs: Microbiology 01/25/18 10:05 Clostridium difficile (PCR) - Final Stool 01/25/18 10:05 Campylobacter Antigen Assay - Final Stool Laboratory Tests 01/25/18 10:05 Urine Color YELLOW Urine Clarity CLEAR Urine pH 5.0 Ur Specific [place] >=1.030 H Urine Protein NEGATIVE Urine Glucose (UA) NEGATIVE Urine Ketones NEGATIVE Urine Occult Blood SMALL H Urine Nitrite NEGATIVE Urine Bilirubin NEGATIVE Urine Urobilinogen 0.2 (NORMAL) Ur Leukocyte Esterase NEGATIVE Urine RBC 0-5 Urine WBC 0-3 Ur Squamous Epith Cells MANY Squamous H Urine Bacteria Many H Urine Mucus Few Strands Ur Microscopic Review INDICATED Urine Culture Comments NOT INDICATED Urine HCG, Qual NEGATIVE PD MEDICAL DECISION MAKING - ED course Complexity details: considered differential (She sounds 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 difficile. Stool studies pending and will be few hours according to the lab. We will empirically treat her for that for now pending the stool results.), d/w patient Departure - Departure Disposition: 01 Home, Self Care Clinical Impression: Nausea, C. difficile enteritis Diarrhea Qualifiers: Diarrhea type: presumed infectious Qualified Code(s): R19.7 - Diarrhea, unspecified Condition: Stable Record reviewed to determine appropriate education?: Yes Follow-Up: Veronica Hong ARNP [Primary Care Provider] - Prescriptions: Metronidazole [Flagyl] 500 mg PO BID #28 tablet Naproxen 375 mg PO BID #20 tablet Ondansetron Odt [Zofran] 4 mg TL Q6H PRN #20 tablet PRN Reason: Nausea / Vomiting Promethazine [Phenergan] 25 mg PO Q6H PRN #10 tab PRN Reason: Nausea / Vomiting Comments: The stool study test still have not resulted so will let you go home and have you follow-up with your primary care regarding the test results tomorrow. You can just call them in the office and talk to the office nurse to research it. Use Zofran or promethazine as needed for nausea. Naproxen for inflammation and pains. I would start the metronidazole (Flagyl) twice daily for 2 weeks pending this stool studies for presumptive recurrent C. difficile. Forms: Activity restrictions Discharge Date/Time: 01/25/18 12:38
[2018-01-25 10:15] VITALS: BP 136/90
[2018-01-25 10:30] LABS: BILIRUBIN,URINE NEGATIVE (NEGATIVE); GLUCOSE, URINE (UA) NEGATIVE (NEGATIVE); KETONES,URINE (UA) NEGATIVE (NEGATIVE); LEUKOCYTE ESTERASE, URINE NEGATIVE (NEGATIVE); NITRITE,URINE NEGATIVE (NEGATIVE); OCCULT BLOOD,URINE SMALL (NEGATIVE); PROTEIN,URINE NEGATIVE (NEGATIVE); UROBILINOGEN,URINE 0.2 (NORMAL) E.U./dL (NORMAL)
[2018-01-25 10:32] LABS: CLARITY,URINE CLEAR (CLEAR); HCG UR QUAL NEGATIVE
[2018-01-25 10:48] LABS: BACTERIA,URINE Many /HPF (None Seen); MUCUS,URINE Few Strands; RBC,URINE 0-5 /HPF (0-5); SQUAMOUS EPITHELIAL CELL,UR MANY Squamous (<= Few)
[2018-01-25] MEDS ORDERED: metroNIDAZOLE 250 MG TABLET PO STA (11:16)
[2018-01-25] MEDS ORDERED: ONDANSETRON ODT 4 MG TABLET TL STA (11:16)
[2018-01-25] MEDS ORDERED: DIPHENOX/ATROPINE 2.5/0.025 MG TABLET PO STA (11:16)
== END 2018-01-25 12:38 | disposition home or self-care (01) ==
LOC: ED 08:59
DX: A04.71 Enterocolitis due to Clostridium difficile, recurrent (principal); R11.0 Nausea
CPT/HCPCS: 81001; 81025; 87045; 87046; 87493; 99283; A9270; Q0162; 81003; 87086

== ENCOUNTER 2018-03-30 21:38 | Emergency (ER) | payer OTHER, MEDICAID ==
[2018-03-30 21:48] VITALS: BP 145/87
--- NOTE | 2018-03-30 22:37 | XRAY Report ---
Reason: Injruy @ work lifting a box when popped L wrist Procedure Date: 03/30/2018 Accession Number: [id number] / [id number] Procedure: XR - Wrist 3 View LT CPT Code: FULL RESULT: EXAM: LEFT WRIST RADIOGRAPHY EXAM DATE: 03/30/2018 10:16 PM. CLINICAL HISTORY: Injured at work lifting a box when popped left wrist. COMPARISON: None. TECHNIQUE: 3 views. FINDINGS: Bones: Normal. No fractures or bone lesions. Joints: Normal. No subluxations. Soft Tissues: Unremarkable. IMPRESSION: Normal wrist radiography. RADIA
[2018-03-30] MEDS ORDERED: IBUPROFEN 800 MG TABLET PO STA (23:04)
--- NOTE | 2018-03-30 23:07 | ED Physician Documentation ---
PD HPI PED TRAUMA - Stated complaint Stated complaint: L WRIST INJ - Chief complaint Chief Complaint: Trauma Ext - History obtained from History obtained from: Patient - History of Present Illness Mechanism of injury: Other (She was lifting something heavy at work a few days ago and felt a pop in the wrist and has had progressive pain over the dorsal part of the wrist ever since.) Review of Systems Constitutional: reports: Reviewed and negative Throat: reports: Reviewed and negative Cardiac: reports: Reviewed and negative PD PAST MEDICAL HISTORY - Past Medical History Past Medical History: Yes Cardiovascular: None Respiratory: None Neuro: None GI: Cholelithiasis, 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, Other HEENT: Other Psych: Depression, Anxiety, Bipolar disorder Derm: None - Past Surgical History Past Surgical History: Yes General: Cholecystectomy Ortho: Arthroscopic surgery HEENT: Tonsil/Adenoidectomy - Present Medications Home Medications: Ambulatory Orders Medication Instructions Recorded Confirmed diazePAM [Valium] 5 - 10 mg PO TID PRN #15 tablet 01/17/18 Metronidazole [Flagyl] 500 mg PO BID #28 tablet 01/25/18 Naproxen 375 mg PO BID #20 tablet 01/25/18 Ondansetron Odt [Zofran] 4 mg TL Q6H PRN #20 tablet 01/25/18 Promethazine [Phenergan] 25 mg PO Q6H PRN #10 tab 01/25/18 Ibuprofen [Motrin] 800 mg PO Q8H PRN #30 tablet 03/30/18 - Allergies Allergies/Adverse Reactions: Allergies Allergy/AdvReac Type Severity Reaction Status Date / Time Penicillins Allergy Hives Verified 03/30/18 21:48 Sulfa (Sulfonamide AdvReac Intermediate Rash Verified 03/30/18 21:48 Antibiotics) - Social History Does the pt smoke?: No Smoking Status: Never smoker Does the pt drink ETOH?: No Does the pt have substance abuse?: No - Immunizations Immunizations are current?: Yes - POLST Patient has POLST: No PD ED PE NORMAL - Vitals Vital signs reviewed: Yes - General General: Alert and oriented X 3, No acute distress - Extremities Extremities: Other (Mild tenderness over the dorsal wrist without swelling, she has pain with basically any range of motion. Normal neurovascular function in the left hand.) - Neuro Neuro: Alert and oriented X 3, Normal speech Results - Vitals Vitals: Vital Signs - 24 hr 03/30/18 21:45 Temperature 36.0 C L Heart Rate 93 Respiratory 16 Rate Blood Pressure 145/87 H O2 Saturation 100 Oxygen O2 Source Room air - Rads (name of study) L wrist 3v Radiology: EMP read contemporaneously (normal) PD MEDICAL DECISION MAKING - ED course ED course: This is a 23-year-old woman with an acute tendinitis of work-related injury in the left wrist. She was placed in a Velcro splint and given a light duty note for work. She declined anything other than anti-inflammatories for pain. Departure - Departure Disposition: Home, Self Care Clinical Impression: Left wrist tendinitis Condition: Good Record reviewed to determine appropriate education?: Yes Instructions: ED Sprain Wrist, ED Splint Care Velcro Prescriptions: Ibuprofen [Motrin] 800 mg PO Q8H PRN #30 tablet PRN Reason: PAIN &/OR FEVER Comments: Recheck with your doctor in a week if not better. Return for new or worsening symptoms. Your blood pressure was elevated today on check into the emergency department. This does not mean that you have hypertension, it is a common phenomenon to come to the emergency department and have elevated blood pressure. I recommend that you see your primary care physician within the week to have it rechecked when you are feeling better. Forms: Activity restrictions
== END 2018-03-30 23:14 | disposition home or self-care (01) ==
LOC: ED 21:38
DX: M77.9 Enthesopathy, unspecified (principal); X50.0XXA Overexertion from strenuous movement or load, initial encounter; Y99.0 Civilian activity done for income or pay; R03.0 Elevated blood-pressure reading, without diagnosis of hypertension
CPT/HCPCS: 1040M; 73110; 99282; 99283; A9270

== ENCOUNTER 2018-04-17 17:04 | Emergency (ER) | payer MEDICAID ==
[2018-04-17 17:15] VITALS: BP 127/83
--- NOTE | 2018-04-17 17:19 | ED Physician Documentation ---
PD HPI URI - Stated complaint Stated Complaint: SORE THROAT/COUGH/ISABELLA/NAUS - Chief complaint Chief Complaint: Abd Pain - History obtained from History obtained from: Patient - History of Present Illness Timing - onset: How many days ago (4-5) Timing duration: Days (4-5) Timing details: Gradual onset, Still present (worsening) Associated symptoms: Fever, Sore throat, Swollen nodes, Other (nausea and some mild mucous stools/diarrhea.). No: Nasal congestion, Dry cough Contributing factors: No: Sick contact, Immunocompromised Improves by: Medication (had some antiemetic at home which helped with nausea. Tylenol helps with fevers. 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, Other HEENT: Other Psych: Depression, Anxiety, Bipolar disorder Derm: None - Past Surgical History Past Surgical History: Yes General: Cholecystectomy Ortho: Arthroscopic surgery HEENT: Tonsil/Adenoidectomy - Present Medications Home Medications: Ambulatory Orders Medication Instructions Recorded Confirmed Cephalexin [Keflex] 500 mg PO TID #21 capsule 04/17/18 Dexamethasone [Decadron] 4 mg PO DAILY #5 tablet 04/17/18 Saccharomyces Boulardii [Florastor] 250 mg PO BID #20 capsule 04/17/18 - Allergies Allergies/Adverse Reactions: Allergies Allergy/AdvReac Type Severity Reaction Status Date / Time Penicillins Allergy Hives Verified 04/17/18 17:15 Sulfa (Sulfonamide AdvReac Intermediate Rash Verified 04/17/18 17:15 Antibiotics) - Social History Does the pt smoke?: No Smoking Status: Never smoker Does the pt drink ETOH?: No Does the pt have substance abuse?: No - Immunizations Immunizations are current?: Yes - POLST Patient has POLST: No PD ED PE NORMAL - Vitals Vital signs reviewed: Yes - General General: Alert and oriented X 3, Well developed/nourished, Other (appears in pain with swallowing.) - HEENT HEENT: Ears normal. No: Pharynx benign (moderate redness with focal swelling of uvula and left tonsil/peritonsillar area, without exudate.) - Neck Neck: Supple, no meningeal sign, Other (some anterior adenopathy) - Cardiac Cardiac: RRR, No murmur - Respiratory Respiratory: Clear bilaterally - Abdomen Abdomen: Soft, Non tender - Derm Derm: Normal color, Warm and dry - Extremities Extremities: Normal ROM s pain - Neuro Neuro: Alert and oriented X 3, No motor deficit, Normal speech Results - Vitals Vitals: Vital Signs - 24 hr 04/17/18 17:13 Temperature 36.0 C L Heart Rate 94 Respiratory 18 Rate Blood Pressure 127/83 H O2 Saturation 98 Oxygen O2 Source Room air PD MEDICAL DECISION MAKING - ED course Complexity details: reviewed results, re-evaluated patient, considered differential, d/w patient Departure - Departure Disposition: 01 Home, Self Care Condition: Stable Record reviewed to determine appropriate education?: Yes Follow-Up: Ina Quintero ARNP [Primary Care Provider] - Prescriptions: Cephalexin [Keflex] 500 mg PO TID #21 capsule Dexamethasone [Decadron] 4 mg PO DAILY #5 tablet Saccharomyces Boulardii [Florastor] 250 mg PO BID #20 capsule Comments: Drink lots of fluids. Tylenol or ibuprofen or Aleve if needed for fevers and pains. Decadron steroid for inflammation which will help quite a bit with the discomfort over the next day or 2. Given the concern for bacterial infection, will also treat with cephalexin antibiotic as directed. In conjunction, add a probiotic such as Florastor in order to reduce the side effects intestinally of the antibiotic.
[2018-04-17] MEDS ORDERED: cephALEXin 250 MG CAPSULE PO STA (17:41)
[2018-04-17] MEDS ORDERED: DEXAMETHASONE 10 MG/ML VIAL PO STA (17:41)
[2018-04-17] MEDS ORDERED: NAPROXEN 250 MG TABLET PO STA (17:41)
== END 2018-04-17 18:14 | disposition home or self-care (01) ==
LOC: ED 17:04
DX: J20.9 Acute bronchitis, unspecified (principal)
CPT/HCPCS: 99283; A9270

== ENCOUNTER 2018-05-21 07:45 | Outpatient (CLI) | payer OTHER, MEDICAID ==
--- NOTE | 2018-05-23 12:22 | MRI Report ---
Reason: PAIN IN LEFT WRIST Procedure Date: 05/21/2018 Accession Number: [id number] / [id number] Procedure: MRI - Wrist LT W/O CPT Code: FULL RESULT: EXAM: LEFT WRIST MRI WITHOUT CONTRAST EXAM DATE: 05/21/2018 08:42 AM. CLINICAL HISTORY: Lifting heavy boxes at work. Box fell and twisted left wrist. Medial pain. COMPARISON: WRIST 3 VIEW LT 03/30/2018 10:04 PM. TECHNIQUE: Multiplanar, multisequence T1-weighted and fluid-sensitive sequences of the wrist without contrast. Other: None. FINDINGS: Bones: There is a small focus of subchondral fluid in the anterior margin of the distal radius, adjacent to the base of the radial styloid process. The findings raise the possibility of prior trauma. Cartilage: The articular cartilage is unremarkable. There is a full-thickness tear of the radial attachment of the TFC. The dorsal and volar radioulnar ligaments are intact. Fluid is visible in the distal radioulnar joint. Ligaments: The scapholunate and lunotriquetral ligaments are intact. The visualized other intrinsic, extrinsic and collateral ligaments are unremarkable. Tendons: The extensor compartment I through and flexor tendons are unremarkable. Musculature: No edema or fatty atrophy. Other: The contents of the carpal tunnel, including the median nerve, are unremarkable. Guyons canal is unremarkable. No ganglion cysts. No joint effusions. The subcutaneous tissues are unremarkable. IMPRESSION: 1. Full-thickness tear of the TFC at its radial attachment. Distal radial ulnar joint effusion. 2. Possible prior trauma to the anterior subchondral bone of the distal radius. [facility] MUSCULOSKELETAL RADIOLOGY SECTION
== END 2018-05-21 07:46 | disposition home or self-care (01) ==
LOC: DI 07:45
PROVIDERS: ATTEND Nurse Practitioner Family
DX: S63.592A Other specified sprain of left wrist, initial encounter (principal); M25.432 Effusion, left wrist

== ENCOUNTER 2018-06-05 08:07 | Emergency (ER) | payer MEDICAID ==
[2018-06-05 08:14] VITALS: BP 141/72
[2018-06-05] MEDS ORDERED: DEXAMETHASONE 10 MG/ML VIAL PO STA (08:45)
--- NOTE | 2018-06-05 08:48 | ED Physician Documentation ---
PD HPI HEENT - Stated complaint Stated Complaint: THROAT PAIN - Chief complaint Chief Complaint: Heent - History obtained from History obtained from: Patient - History of Present Illness Timing - onset: Yesterday Timing - duration: Days (1) Timing - details: Gradual onset, Still present Location: Throat Improves: Medication Worsens: Swalllowing Associated symptoms: Fever, Congestion, Rhinorrhea, Unable to swallow, Swollen nodes, Headache, Cough Similar symptoms before: Diagnosis (strep and tonsilitis) Recently seen: Not recently seen - Additional information Additional information: 23-year-old female who has had tonsils and adenoids removed and has had sets of tubes placed has developed a cough congestion fever sore throat loss of voice and muscle aches and pains beginning yesterday. Review of Systems Constitutional: reports: Fever, Chills, Myalgias, Fatigue Eyes: denies: Decreased vision Ears: denies: Ear pain Nose: reports: Rhinorrhea / runny nose, Congestion Throat: reports: Sore throat Cardiac: denies: Chest pain / pressure, Palpitations Respiratory: reports: Cough. 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, Other HEENT: Other Psych: Depression, Anxiety, Bipolar disorder Derm: None - Past Surgical History Past Surgical History: Yes General: Cholecystectomy Ortho: Arthroscopic surgery HEENT: Tonsil/Adenoidectomy - Present Medications Home Medications: Ambulatory Orders Medication Instructions Recorded Confirmed Amox/Clav 875/125 [Augmentin] 1 each PO Q12H #20 tablet 06/05/18 - Allergies Allergies/Adverse Reactions: Allergies Allergy/AdvReac Type Severity Reaction Status Date / Time Penicillins Allergy Hives Verified 06/05/18 08:14 Sulfa (Sulfonamide AdvReac Intermediate Rash Verified 06/05/18 08:14 Antibiotics) - Social History Does the pt smoke?: No Smoking Status: Never smoker Does the pt drink ETOH?: No Does the pt have substance abuse?: No - Immunizations Immunizations are current?: Yes - POLST Patient has POLST: No PD ED PE NORMAL - Vitals Vital signs reviewed: Yes (tachy and hypertensive ) - General General: Alert and oriented X 3, Well developed/nourished - HEENT HEENT: Atraumatic, PERRL, EOMI, Other (There is tympanosclerosis present bilaterally without any inflammation. There is erythema and swelling to the soft palate and uvula more on the right side than the left there is no exudate. ) - Neck Neck: Supple, no meningeal sign, No bony TTP, Other (tender submandibular adenopathy bilat) - Cardiac Cardiac: RRR, No murmur - Respiratory Respiratory: No respiratory distress, Clear bilaterally - Abdomen Abdomen: Soft, Non tender - Back Back: No CVA TTP, No spinal TTP - Derm Derm: Normal color, Warm and dry, No rash - Extremities Extremities: No deformity, No edema - Neuro Neuro: Alert and oriented X 3, nursing attendant 2-12 intact, No motor deficit, No sensory deficit, Normal speech Eye Opening: Spontaneous Motor: Obeys Commands Verbal: Oriented GCS Score: 15 - Psych Psych: Normal mood, Normal affect Results - Vitals Vitals: Vital Signs - 24 hr 06/05/18 08:12 Temperature 36.2 C L Heart Rate 104 H Respiratory 14 Rate Blood Pressure 141/72 H O2 Saturation 97 Oxygen O2 Source Room air - Labs Labs: Laboratory Tests 06/05/18 06/05/18 08:15 09:02 Influenza A (Rapid) Negative Influenza B (Rapid) Negative Group A Strep Rapid Negative PD MEDICAL DECISION MAKING - ED course Complexity details: reviewed results, re-evaluated patient, considered differential, d/w patient ED course: 23-year-old female with cough congestion and sore throat has swelling to the soft palate on the right side and a negative rapid strep. Departure - Departure Disposition: 01 Home, Self Care Clinical Impression: Uvulitis Condition: Stable Instructions: ED Uvulitis Follow-Up: Renee To ARNP [Primary Care Provider] - Prescriptions: Amox/Clav 875/125 [Augmentin] 1 each PO Q12H #20 tablet
[2018-06-05] MEDS ORDERED: CHERRY SYRUP 10 ML UDC PO ONE (09:10)
== END 2018-06-05 09:57 | disposition home or self-care (01) ==
LOC: ED 08:07
DX: K12.2 Cellulitis and abscess of mouth (principal)
CPT/HCPCS: 87070; 87275; 87276; 87430; 99283; A9270

== ENCOUNTER 2018-09-27 10:10 | Emergency (ER) | payer MEDICAID ==
[2018-09-27 10:24] VITALS: BP 129/79
--- NOTE | 2018-09-27 10:59 | ED Physician Documentation ---
PD HPI URI - Stated complaint Stated Complaint: HURTS TO SWALLOW - Chief complaint Chief Complaint: Heent - History obtained from History obtained from: Patient - History of Present Illness Timing - onset: Other (3 days increasing sore throat. No F/C, no cough. 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 HEENT: Other Psych: Depression, Anxiety, Bipolar disorder Derm: None - Past Surgical History Past Surgical History: Yes General: Cholecystectomy Ortho: Arthroscopic surgery HEENT: Tonsil/Adenoidectomy - Present Medications Home Medications: Ambulatory Orders Medication Instructions Recorded Confirmed Amox/Clav 875/125 [Augmentin] 1 each PO Q12H #20 tablet 06/05/18 predniSONE [Deltasone] 60 mg PO DAILY 5 Days tablet 09/27/18 - Allergies Allergies/Adverse Reactions: Allergies Allergy/AdvReac Type Severity Reaction Status Date / Time Penicillins Allergy Hives Verified 06/05/18 08:14 Sulfa (Sulfonamide AdvReac Intermediate Rash Verified 06/05/18 08:14 Antibiotics) - Social History Does the pt smoke?: No Smoking Status: Never smoker Does the pt drink ETOH?: No Does the pt have substance abuse?: No - Immunizations Immunizations are current?: Yes - POLST Patient has POLST: No PD ED PE NORMAL - Vitals Vital signs reviewed: Yes - General General: Alert and oriented X 3, No acute distress - HEENT HEENT: Pharynx benign, Other (Red tonsillar pillars) - Neck Neck: No adenopathy - Neuro Neuro: Alert and oriented X 3, Normal speech - Psych Psych: Normal mood, Normal affect Results - Vitals Vitals: Vital Signs - 24 hr 09/27/18 10:20 Temperature 37.4 C Heart Rate 92 Respiratory 18 Rate Blood Pressure 129/79 O2 Saturation 99 Oxygen O2 Source Room air - Labs Labs: Laboratory Tests 09/27/18 11:02 Group A Strep Rapid Negative Departure - Departure Disposition: 01 Home, Self Care Clinical Impression: Viral pharyngitis Condition: Good Record reviewed to determine appropriate education?: Yes Instructions: ED Pharyngitis Viral Report Pending Prescriptions: predniSONE [Deltasone] 60 mg PO DAILY 5 Days tablet Forms: Activity restrictions
== END 2018-09-27 11:21 | disposition home or self-care (01) ==
LOC: ED 10:10
DX: J02.8 Acute pharyngitis due to other specified organisms (principal); B97.89 Other viral agents as the cause of diseases classified elsewhere
CPT/HCPCS: 87070; 87430; 99283

== ENCOUNTER 2018-10-01 11:59 | Emergency (ER) | payer MEDICAID ==
[2018-10-01 12:14] VITALS: BP 135/78
--- NOTE | 2018-10-01 13:07 | ED Physician Documentation ---
History of Present Illness - Stated complaint Stated Complaint: SORE THROAT - Chief complaint Chief Complaint: Heent - History obtained from History obtained from: Patient - Additonal information Additional information: Patient is a previous healthy 23-year-old female presenting with several days of sore throat. Patient has been seen previously and had a negative strep test. Patient has had previous tonsillectomy. Patient reports metallic taste in her mouth and pain with swallowing, although denies acid reflux-like symptoms. Patient denies nasal congestion, rhinorrhea, ear pain, but states that sore throat discomfort radiates towards ears. Patient also denies difficulty with breathing, productive cough, or fever. No other improving or worsening factors noted. Denies pregnacy. Review of Systems Constitutional: denies: Fever Ears: denies: Ear pain Nose: denies: Rhinorrhea / runny nose, Congestion Throat: reports: Sore throat. 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 HEENT: Other Psych: Depression, Anxiety, Bipolar disorder Derm: None - Past Surgical History Past Surgical History: Yes General: Cholecystectomy Ortho: Arthroscopic surgery HEENT: Tonsil/Adenoidectomy - Present Medications Home Medications: Ambulatory Orders Medication Instructions Recorded Confirmed Amox/Clav 875/125 [Augmentin] 1 each PO Q12H #20 tablet 06/05/18 predniSONE [Deltasone] 60 mg PO DAILY 5 Days tablet 09/27/18 - Allergies Allergies/Adverse Reactions: Allergies Allergy/AdvReac Type Severity Reaction Status Date / Time Penicillins Allergy Hives Verified 06/05/18 08:14 Sulfa (Sulfonamide AdvReac Intermediate Rash Verified 06/05/18 08:14 Antibiotics) - Social History Does the pt smoke?: No Smoking Status: Never smoker Does the pt drink ETOH?: No Does the pt have substance abuse?: No - Immunizations Immunizations are current?: Yes - POLST Patient has POLST: No PD ED PE NORMAL - Vitals Vital signs reviewed: Yes - General General: Alert and oriented X 3, No acute distress, Well developed/nourished - HEENT HEENT: Atraumatic, Moist mucous membranes, Pharynx benign, Dentition benign - Neck Neck: Supple, no meningeal sign - Cardiac Cardiac: RRR, No murmur - Respiratory Respiratory: No respiratory distress - Derm Derm: Normal color, Warm and dry, No rash - Extremities Extremities: No deformity, No tenderness to palpate - Neuro Neuro: Alert and oriented X 3, No motor deficit, No sensory deficit - Psych Psych: Normal mood, Normal affect Results - Vitals Vitals: Vital Signs - 24 hr 10/01/18 12:11 Temperature 36.4 C L Heart Rate 104 H Respiratory 16 Rate Blood Pressure 135/78 H O2 Saturation 100 Oxygen O2 Source Room air PD MEDICAL DECISION MAKING - ED course Complexity details: considered differential, d/w patient ED course: Patient presenting with sore throat complaints. Patient has had previous tonsillectomy. Do not find evidence and oropharynx indicate pharyngitis, retropharyngeal abscess, dental abscess or other complication. Do not find evidence of facial abscess or sinusitis on exam. Do not find evidence of pneumonia on exam. Patient does describe GERD-like symptoms, although she denies specific acid reflux. Did discuss attempting GI cocktail for at least temporary relief and otherwise recommending supportive cares, primary care physician follow-up for home. Patient voiced understanding and is comfortable with discharge plan. Departure - Departure Disposition: 01 Home, Self Care Clinical Impression: Viral illness, GERD (gastroesophageal reflux disease) Condition: Good Instructions: ED GERD, ED Viral Syndrome Follow-Up: your,doctor [Other] - Within 3 Days Comments: Recommend supportive cares such as good oral hygiene, Listerine or salt water gargles, ibuprofen/Tylenol as needed, as well as can try [id number] antacids. Follow-up with primary care physician in next 2 to 3 days and return to ED sooner if experience worsening symptoms or have other concerns.
[2018-10-01] MEDS ORDERED: MAG HYDROX/AL HYDROX/SIMETH 30 ML UDC PO STA (13:14)
[2018-10-01] MEDS ORDERED: LIDOCAINE VISCOUS 2% 15 ML UDC MM STA (13:14)
== END 2018-10-01 13:23 | disposition home or self-care (01) ==
LOC: ED 11:59
DX: B34.9 Viral infection, unspecified (principal); K21.9 Gastro-esophageal reflux disease without esophagitis; Z90.09 Acquired absence of other part of head and neck
CPT/HCPCS: 99282; 99283; A9270

== ENCOUNTER 2018-11-07 23:22 | Outpatient (CLI) | payer MEDICAID, OTHER | END 2018-11-07 23:23 | disposition critical access hospital (66) | LOC: EMS 23:22 | PROVIDERS: ATTEND Surgery | DX: R51 Headache (principal); F41.9 Anxiety disorder, unspecified; Y04.2XXA Assault by strike against or bumped into by another person, initial encounter | CPT/HCPCS: A0425; A0429; A0999 ==

== ENCOUNTER 2018-11-07 23:28 | Emergency (ER) | payer MEDICAID, OTHER ==
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
[2018-11-08 00:51] VITALS: BP 135/77
== END 2018-11-08 00:50 | disposition home or self-care (01) ==
LOC: EDUNIT# → ED 23:28
DX: S00.03XA Contusion of scalp, initial encounter (principal); Y04.2XXA Assault by strike against or bumped into by another person, initial encounter; Z87.891 Personal history of nicotine dependence
CPT/HCPCS: 99282; 99283

== ENCOUNTER 2022-06-16 15:19 | Emergency (ER) | payer MEDICAID ==
--- NOTE | 2022-06-16 15:41 | ED Physician Documentation ---
PD HPI HEENT - Stated complaint Stated Complaint: GUM/THROAT SWOLLEN - Chief complaint Chief Complaint: Heent - History obtained from History obtained from: Patient - Additional information Additional information: For about 4 days she has had gum swelling which is increasingly painful and for about 2 days she has had left submandibular swelling and pain. Not associated with fevers. Went to the dentist today and was told it was not a dental issue. 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 : None HEENT: None Psych: Depression, Anxiety Musculoskeletal: None Derm: None - Past Surgical History Past Surgical History: Yes General: Cholecystectomy Ortho: Arthroscopic surgery HEENT: Tonsil/Adenoidectomy - Present Medications Home Medications: Ambulatory Orders Medication Instructions Recorded Confirmed Amox/Clav 875/125 [Augmentin] 1 each PO Q12H #20 tablet 06/05/18 predniSONE [Deltasone] 60 mg PO DAILY 5 Days tablet 09/27/18 Ibuprofen [Motrin] 800 mg PO Q8H PRN #30 tablet 06/16/22 clindamycin HCL [Cleocin HCl] 300 mg PO QID #28 cap 06/16/22 - Allergies Allergies/Adverse Reactions: Allergies Allergy/AdvReac Type Severity Reaction Status Date / Time Penicillins Allergy Hives Verified 06/16/22 15:24 Sulfa (Sulfonamide AdvReac Intermediate Rash Verified 06/16/22 15:24 Antibiotics) - Social History Does the pt smoke?: No Smoking Status: Former smoker Does the pt drink ETOH?: No Does the pt have substance abuse?: No - Immunizations Immunizations are current?: Yes - POLST Patient has POLST: No PD ED PE NORMAL - Vitals Vital signs reviewed: Yes - General General: Alert and oriented X 3, No acute distress - HEENT HEENT: Other (She has significant lower gingivitis. No cavities. She is a tender mass in the left submental area without trismus.) - Neck Neck: Supple, no meningeal sign, No bony TTP - Neuro Neuro: Alert and oriented X 3, Normal speech Results - Vitals Vitals: Vital Signs - 24 hr 06/16/22 06/16/22 15:24 17:57 Temperature 36.5 C Heart Rate 100 85 Respiratory 16 16 Rate Blood Pressure 140/90 H 140/75 H O2 Saturation 98 100 Oxygen O2 Source Room air - Rads (name of study) CT of the neck with IV contrast Relevant Findings:: Final report received, EMP independent interpretation of test PD Medical Decision Making - ED course ED course: 27-year-old woman presents with gingivitis and now a very tender area in the submental area. No trismus though, but Ludewig's is still a concern so a CT was done showing lymphadenitis. Her dentist already gave her a prescription for Peridex which is appropriate but we will add clindamycin noting penicillin allergy. Departure - Departure Disposition: Home, Self Care Clinical Impression: Gingivitis, Lymphadenitis Condition: Stable Record reviewed to determine appropriate education?: Yes Instructions: ED Cervical Adenitis Abx Tx, ED Trench Mouth Prescriptions: clindamycin HCL [Cleocin HCl] 300 mg PO QID #28 cap Ibuprofen [Motrin] 800 mg PO Q8H PRN #30 tablet PRN Reason: PAIN &/OR FEVER Comments: Work-up today shows swollen infected lymph nodes probably related to the gum infection. I sent the prescription electronically to [facility] in [place]. Return if worse or if new symptoms develop. Follow-up with your dentist later this week for recheck.
[2022-06-16] MEDS ORDERED: iohexoL-300 100 ML VIAL ONE (16:30)
[2022-06-16] MEDS ORDERED: KETOROLAC 15 MG/ML VIAL IVP STA (17:51)
--- NOTE | 2022-06-16 17:52 | CT Report ---
PROCEDURE: CT neck with contrast INDICATIONS: sublingual swelling, L side, ?sialoadenitis? CONTRAST: 100mL Omni 300 TECHNIQUE: After the administration of intravenous contrast, 3.0 mm axial sections acquired from the sella to th e aortic arch. Additional oblique axial 3.0 mm sections acquired through the pharynx. 3 mm thick co corey reformats were generated. For radiation dose reduction, the following was used: automated exp osure control, adjustment of mA and/or kV according to patient size. COMPARISON: None. FINDINGS: Image quality: Excellent. Lymph nodes: Scattered submental and submandibular lymph nodes measure up to 9 mm on the left with mi ld surrounding inflammatory change. The submandibular gland itself is unremarkable. Right submandibul ar adenopathy measures up to 1.2 cm Scattered deep cervical lymph nodes are nonenlarged Vessels: Visualized vasculature appears patent. Neck spaces: The oropharynx, nasopharynx, and pharynx demonstrate no mucosal lesions. The vocal cor ds, false vocal cords, pyriform sinuses, epiglottis, vallecula, and tongue base all appear normal. E xtramucosal spaces appear unremarkable. Glands: The parotid and submandibular glands appear normal. The thyroid is normal in size and there are no incidental findings. Miscellaneous: Visualized brain and orbits appear normal. Lung apices appear clear. Superficial so ft tissues appear normal. Bones: No suspicious bony lesions. Visualized sinuses and mastoids appear unremarkable. IMPRESSION: Scattered submandibular lymph nodes. Palpable nodule corresponds with mildly inflamed 9 mm lymph node , consistent with lymphadenitis. Right submandibular adenopathy. Cervical lymph nodes are nonenlarged . Reviewed by: Larry Jarrett MD on 06/16/2022 4:51 PM [facility] Approved by: Larry Jarrett MD on 06/16/2022 4:51 PM [facility] Station ID: [id number]
[2022-06-16 17:57] VITALS: BP 140/75
[2022-06-16] MEDS ORDERED: LIDOCAINE VISCOUS 2% 15 ML UDC MM STA (17:58)
[2022-06-16] MEDS ORDERED: CLINDAMYCIN 150 MG CAPSULE PO STA (17:58)
[2022-06-16] MEDS ORDERED: iohexoL-300 100 ML VIAL IVP ONE (19:35)
== END 2022-06-16 18:17 | disposition home or self-care (01) ==
LOC: ED 15:19
DX: K05.10 Chronic gingivitis, plaque induced (principal); I88.9 Nonspecific lymphadenitis, unspecified; Z87.891 Personal history of nicotine dependence
CPT/HCPCS: 70491; 96374; 99283; 99284; A9270; Q9967

== ENCOUNTER 2022-06-17 17:06 | Emergency (ER) | payer MEDICAID ==
[2022-06-17 17:19] VITALS: BP 150/104
[2022-06-17] MEDS ORDERED: DEXAMETHASONE 10 MG/ML VIAL PO STA (17:34)
[2022-06-17] MEDS ORDERED: LIDOCAINE 1% 2 ML VIAL MC ONE (17:34)
[2022-06-17] MEDS ORDERED: HYDROcod/ACETAM 5/325 MG TABLET PO STA (17:34)
[2022-06-17] MEDS ORDERED: cefTRIAXone 1 GM VIAL IM STA (17:34)
--- NOTE | 2022-06-17 17:36 | ED Physician Documentation ---
History of Present Illness - Stated complaint Stated Complaint: MOUTH SWOLLEN - Chief complaint Chief Complaint: General - History obtained from History obtained from: Patient - History of Present Illness Pain level max: 8 Pain level now: 6 - Additonal information Additional information: Patient is a 27-year-old female with ongoing gingival swelling over the past several days. She states that she saw dentist and was placed on Peridex mouthwash. She was seen here yesterday, started on clindamycin and had a CT scan that showed lymph node swelling, no abscesses. She states that the pain is increasing today. She was prescribed Motrin but feels that that is not controlling her pain. No fevers. No chills. No difficulty speaking or swallowing. Worse with movement and palpation, nothing makes it better. 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 : None HEENT: None Psych: Depression, Anxiety Musculoskeletal: None Derm: None - Past Surgical History Past Surgical History: Yes General: Cholecystectomy Ortho: Arthroscopic surgery HEENT: Tonsil/Adenoidectomy - Present Medications Home Medications: Ambulatory Orders Medication Instructions Recorded Confirmed Ibuprofen [Motrin] 800 mg PO Q8H PRN #30 tablet 06/16/22 06/17/22 clindamycin HCL [Cleocin HCl] 300 mg PO QID #28 cap 06/16/22 06/17/22 HYDROcod/ACETAM 5/325 [[place] 5/325] 1 - 2 ea PO Q6H PRN #14 tablet 06/17/22 - Allergies Allergies/Adverse Reactions: Allergies Allergy/AdvReac Type Severity Reaction Status Date / Time Penicillins Allergy Hives Verified 06/16/22 15:24 Sulfa (Sulfonamide AdvReac Intermediate Rash Verified 06/16/22 15:24 Antibiotics) - Social History Does the pt smoke?: No Smoking Status: Former smoker Does the pt drink ETOH?: No Does the pt have substance abuse?: No - Immunizations Immunizations are current?: Yes - POLST Patient has POLST: No PD ED PE NORMAL - Vitals Vital signs reviewed: Yes - General General: Alert and oriented X 3, No acute distress - HEENT HEENT: Moist mucous membranes, Other (Diffuse gingival swelling, normal phonation. No trismus. No swelling under the tongue. No swelling on the roof of the mouth.) - Neck Neck: Supple, no meningeal sign, Other (Cervical lymphadenopathy) - Cardiac Cardiac: RRR - Respiratory Respiratory: No respiratory distress, Clear bilaterally - Derm Derm: Warm and dry - Neuro Neuro: Alert and oriented X 3 Results - Vitals Vitals: Oxygen O2 Source Room air PD Medical Decision Making - ED course Complexity details: considered differential, d/w patient ED course: Patient with diffuse gingivostomatitis and cervical lymphadenitis. We will continue her antibiotics. She was given a dose of dexamethasone here as well as a dose of Rocephin IM. We will place her on hydrocodone for pain and have her follow-up closely with her dentist. Patient counseled regarding signs and symptoms for which I believe and urgent re-evaluation would be necessary. Patient with good understanding of and agreement to plan and is comfortable going home at this time This document was made in part using voice recognition software. While efforts are made to proofread this document, sound alike and grammatical errors may occur. Departure - Departure Disposition: 01 Home, Self Care Clinical Impression: Lymphadenitis, Gingivitis Condition: Good Instructions: ED Cervical Adenitis Abx Tx, ED Trench Mouth Follow-Up: your,dentist in 2-3 days [Other] Prescriptions: HYDROcod/ACETAM 5/325 [[place] 5/325] 1 - 2 ea PO Q6H PRN #14 tablet PRN Reason: Pain Comments: Your prescriptions were sent to [facility] in [place]. Please continue your antibiotics. Please return if you worsen. I would recommend following up with your dentist in 2 to 3 days for a recheck. I am prescribing a short course of narcotic pain medication for you. These are potentially dangerous and addictive medications that should be used carefully. These medications may constipate you. Take an iaga-erh-fztifno stool softener (docusate) twice daily with plenty of water while taking these medications. If you go 24 hours without a bowel movement, take jpnh-dsa-wnzepfz miralax, per package instructions. Do not drink or drive while taking these medications. If you received narcotic or sedating medications while in the emergency department, do not drive for 24 hours. Store this medication in a safe, secure place and out of reach of children. It is a violation of federal law to give or sell this medication to another person or to use in a manner other than prescribed. The ED will not refill narcotic prescriptions, including prescriptions lost or stolen. To dispose of unwanted medications: 1. [facility] at [address] in [place] has a medication drop box. They accept prescription medications (in pill form) Thursday through Thursday 9:00 a.m. to 5:00 p.m. 2. The [facility] Police Department accepts prescription medications (in pill form only) for disposal year round. Call for more information. 3. Contact the [facility] for the next [facility] sponsored prescription drug collection event. , [id number], or [phone]; Discharge Date/Time: 06/17/22 18:20
== END 2022-06-17 18:20 | disposition home or self-care (01) ==
LOC: ED 17:06
DX: K05.10 Chronic gingivitis, plaque induced (principal); I88.9 Nonspecific lymphadenitis, unspecified; Z87.891 Personal history of nicotine dependence
CPT/HCPCS: 96372; 99283; A9270

== ENCOUNTER 2022-09-05 09:06 | Outpatient (CLI) | payer MEDICAID ==
[2022-09-05 10:12] LABS: THYROID STIMULATING HORMONE 2.44 uIU/mL (0.34-5.60)
[2022-09-05 10:27] LABS: ESTIMATED AVERAGE GLUCOSE 114 mg/dL (70-100); HEMOGLOBIN A1c% 5.6 % (4.27-6.07)
[2022-09-05 10:39] LABS: FOLLICLE STIMULATING HORMONE 5.31 mIU/mL
[2022-09-05 10:41] LABS: LUTEINIZING HORMONE 13.42 mIU/mL
[2022-09-06 07:09] LABS: ESTRADIOL 69.1 pg/mL (.); PROGESTERONE 0.2 ng/mL (.)
[2022-09-06 19:08] LABS: SEX HORM BINDING GLOB SERUM 35.8 nmol/L (24.6-122.0)
== END 2022-09-05 09:07 | disposition home or self-care (01) ==
LOC: LAB 09:06
PROVIDERS: ATTEND Nurse Practitioner
DX: E28.2 Polycystic ovarian syndrome (principal); N92.6 Irregular menstruation, unspecified
CPT/HCPCS: 36415; 82397; 82627; 82670; 83001; 83002; 83036; 83498; 84144; 84270; 84402; 84403; 84443

== ENCOUNTER 2022-11-23 13:42 | Emergency (ER) | payer MEDICAID ==
[2022-11-23 14:17] LABS: BILIRUBIN,URINE NEGATIVE (NEGATIVE); GLUCOSE, URINE (UA) NEGATIVE (NEGATIVE); KETONES,URINE (UA) NEGATIVE (NEGATIVE); LEUKOCYTE ESTERASE, URINE NEGATIVE (NEGATIVE); NITRITE,URINE NEGATIVE (NEGATIVE); OCCULT BLOOD,URINE NEGATIVE (NEGATIVE); PROTEIN,URINE NEGATIVE (NEGATIVE); UROBILINOGEN,URINE 0.2 (NORMAL) E.U./dL (NORMAL)
[2022-11-23 14:20] LABS: CLARITY,URINE CLEAR (CLEAR); HCG UR QUAL NEGATIVE
--- NOTE | 2022-11-23 16:18 | ED Physician Documentation ---
History of Present Illness - Stated complaint Stated Complaint: ,FATIGUE - Chief complaint Chief Complaint: Abd Pain - History obtained from History obtained from: Patient - History of Present Illness Pain level max: 4 Pain level now: 3 - Additonal information Additional information: 27-year-old female presents to the emergency department with dysuria, lower abdominal pain and painful intercourse since Thursday. She states she had some white vaginal discharge, states that feels similar to prior yeast infections. Also has a history of PCOS and states does have some right-sided pelvic pain that feels like an ovarian cyst. Sharp. She feels that her labia are swollen as well. She did use a new laundry detergent but has no new rashes elsewhere. No fevers. No chills. No change in sexual partners. 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 : None HEENT: None Psych: Depression, Anxiety Musculoskeletal: None Derm: None - Past Surgical History Past Surgical History: Yes General: Cholecystectomy Ortho: Arthroscopic surgery HEENT: Tonsil/Adenoidectomy - Present Medications Home Medications: Ambulatory Orders Medication Instructions Recorded Confirmed metFORMIN [Glucophage] 500 mg PO DAILY 11/23/22 11/23/22 metroNIDAZOLE [Flagyl] 500 mg PO BID 7 Days #14 tablet 11/23/22 - Allergies Allergies/Adverse Reactions: Allergies Allergy/AdvReac Type Severity Reaction Status Date / Time Penicillins Allergy Hives Verified 11/23/22 14:01 Sulfa (Sulfonamide AdvReac Intermediate Rash Verified 11/23/22 14:01 Antibiotics) - Social History Does the pt smoke?: No Smoking Status: Never smoker Does the pt drink ETOH?: No Does the pt have substance abuse?: No - Immunizations Immunizations are current?: Yes - POLST Patient has POLST: No PD ED PE NORMAL - Vitals Vital signs reviewed: Yes - General General: Alert and oriented X 3, No acute distress - HEENT HEENT: PERRL, Moist mucous membranes - Neck Neck: Supple, no meningeal sign - Cardiac Cardiac: RRR, Strong equal pulses - Respiratory Respiratory: No respiratory distress, Clear bilaterally - Abdomen Abdomen: Soft, Non tender, Non distended - Female Female : Lens Blank Gauger present (Jalyn, RN), Other (Thin white vaginal discharge, normal external appearance of the labia. No cervical motion tenderness) - Back Back: No CVA TTP, No spinal TTP - Derm Derm: Warm and dry, No rash - Extremities Extremities: No edema, No calf tenderness / cord - Neuro Neuro: Alert and oriented X 3 - Psych Psych: Normal mood, Normal affect Results - Vitals Vitals: Vital Signs - 24 hr 11/23/22 11/23/22 13:56 17:00 Temperature 36.7 C Heart Rate 72 67 Respiratory 16 20 Rate Blood Pressure 124/67 131/85 H O2 Saturation 98 100 Oxygen O2 Source Room air - Labs Labs: Microbiology 11/23/22 16:13 Wet Prep - Final Vaginal Laboratory Tests 11/23/22 14:07 Urine Color YELLOW Urine Clarity CLEAR Urine pH 6.0 Ur Specific [place] >=1.030 H Urine Protein NEGATIVE Urine Glucose (UA) NEGATIVE Urine Ketones NEGATIVE Urine Occult Blood NEGATIVE Urine Nitrite NEGATIVE Urine Bilirubin NEGATIVE Urine Urobilinogen 0.2 (NORMAL) Ur Leukocyte Esterase NEGATIVE Ur Microscopic Review NOT INDICATED Urine Culture Comments NOT INDICATED Urine HCG, Qual NEGATIVE PD Medical Decision Making - ED course Complexity details: reviewed results, re-evaluated patient, considered differential, d/w patient ED course: Patient's wet mount and exam are consistent bacterial vaginitis. We will place the patient on Flagyl for home. She does not want to have an ultrasound today for potential ovarian cyst, history does not sound consistent with torsion. Patient has known polycystic ovarian syndrome and she states is not unusual for her to have some pain from the cyst. No evidence of appendicitis. No fevers. No chills. Patient is well-appearing, nontoxic. We will follow-up with the remainder of her results and call her if they are positive. Patient counseled regarding signs and symptoms for which I believe and urgent re-evaluation would be necessary. Patient with good understanding of and agreement to plan and is comfortable going home at this time This document was made in part using voice recognition software. While efforts are made to proofread this document, sound alike and grammatical errors may occur. Departure - Departure Disposition: 01 Home, Self Care Clinical Impression: Bacterial vaginitis Condition: Good Instructions: ED Vaginosis Bacterial Follow-Up: your,doctor in 1 week [Other] Prescriptions: metroNIDAZOLE [Flagyl] 500 mg PO BID 7 Days #14 tablet Comments: Today: To biotics until gone. Please return if you worsen. Your prescriptions were sent to [facility] and in [place]. As we discussed there are still 2 swabs that are pending, if they are positive for anything else or the treatment needs to be changed, I will call you with the results. Forms: PCP List Discharge Date/Time: 11/23/22 17:01
[2022-11-23] MEDS ORDERED: metroNIDAZOLE 250 MG TABLET PO STA (16:45)
[2022-11-23 17:07] VITALS: BP 131/85; O2SAT 100
[2022-11-23 18:47] LABS: NEISSERIA GONORRHOEAE DNA NEGATIVE (NEGATIVE)
[2022-11-23 18:57] LABS: CHLAMYDIA TRACHOMATIS DNA POSITIVE (NEGATIVE)
--- NOTE | 2022-11-23 20:28 | ED Physician Documentation ---
ED Addendum - Addendum Addendum: 11/23/22 20:27 The patient's chlamydia test came back positive. Gonorrhea is negative. A message was left for the patient to call the emergency department. This was done at 8:27 PM on 11/23. Doxycycline was sent to the pharmacy for the patient. She will need to be informed that her partners need to be tested and treated as well. Departure - Departure Disposition: Home, Self Care Clinical Impression: Bacterial vaginitis, Chlamydia Condition: Good Instructions: ED Vaginosis Bacterial Follow-Up: your,doctor in 1 week [Other] Prescriptions: Doxycycline Monohydrate 100 mg PO BID #14 cap metroNIDAZOLE [Flagyl] 500 mg PO BID 7 Days #14 tablet Comments: Today: To biotics until gone. Please return if you worsen. Your prescriptions were sent to [facility] and in [place]. As we discussed there are still 2 swabs that are pending, if they are positive for anything else or the treatment needs to be changed, I will call you with the results. Forms: PCP List Discharge Date/Time: 11/23/22 17:01
--- NOTE | 2022-11-23 20:43 | ED Physician Documentation ---
ED Addendum - Addendum Addendum: 11/23/22 20:42 Patient did call back and I informed her of the results, patient will need to be tested for other STDs as well including HIV. She will also inform her partners that they need to be tested and treated.
[2022-11-23 21:15] LABS: BACTERIAL VAGINOSIS DNA NEGATIVE (NEGATIVE); CANDIDA GLABRATA DNA NEGATIVE (NEGATIVE); CANDIDA GROUP DNA POSITIVE (NEGATIVE); CANDIDA KRUSEI DNA NEGATIVE (NEGATIVE); TRICHOMONAS VAGINALIS DNA NEGATIVE (NEGATIVE)
== END 2022-11-23 17:01 | disposition home or self-care (01) ==
LOC: ED 13:42
DX: N76.0 Acute vaginitis (principal); A74.9 Chlamydial infection, unspecified; E28.2 Polycystic ovarian syndrome; Z79.84 Long term (current) use of oral hypoglycemic drugs
CPT/HCPCS: 81003; 81025; 81514; 87210; 87491; 87591; 99283; A9270; 81001; 87086; 87661

== ENCOUNTER 2022-12-11 15:31 | Emergency (ER) | payer MEDICAID ==
[2022-12-11 15:53] VITALS: O2SAT 99
[2022-12-11] MEDS ORDERED: oxyCODONE 5 MG TABLET PO STA (16:09)
[2022-12-11 16:17] LABS: BASOPHILS # (AUTO) 0.1 10^3/uL (0.0-0.1); BASOPHILS % (AUTO) 0.6 %; EOSINOPHILS # (AUTO) 0.1 10^3/uL (0.0-0.7); EOSINOPHILS % (AUTO) 0.9 %; HCT - HEMATOCRIT 39.3 % (37.0-47.0); HGB - HEMOGLOBIN 11.9 g/dL (12.0-16.0); LYMPHOCYTES % (AUTO) 33.4 %; MEAN CORPUSCULAR HEMOGLOBIN 24.1 pg (27.0-31.0); MEAN CORPUSCULAR HGB CONC 30.3 g/dL (32.0-36.0); MEAN CORPUSCULAR VOLUME 79.6 fL (81.0-99.0); MEAN PLATELET VOLUME 10.7 fL (7.9-10.8); MONOCYTES # (AUTO) 0.7 10^3/uL (0.0-1.0); MONOCYTES % (AUTO) 7.6 %; NEUTROPHILS # (AUTO) 5.2 10^3/uL (1.5-6.6); NEUTROPHILS % (AUTO) 57.3 %; PLT - PLATELET COUNT 314 10^3/uL (130-450); RED BLOOD COUNT 4.94 10^6/uL (4.20-5.40)
[2022-12-11 16:30] LABS: ALBUMIN 4.4 g/dL (3.2-5.5); ALBUMIN/GLOBULIN RATIO 1.6 (1.0-2.2); BILIRUBIN,TOTAL 0.5 mg/dL (0.2-1.0); CALCIUM 9.6 mg/dL (8.5-10.3); CREATININE 0.8 mg/dL (0.6-1.3); POTASSIUM 3.7 mmol/L (3.5-4.5); TOTAL PROTEIN 7.1 g/dL (6.4-8.9)
--- NOTE | 2022-12-11 17:01 | ED Physician Documentation ---
History of Present Illness - Stated complaint Stated Complaint: R PELVIC PX - Chief complaint Chief Complaint: Abd Pain - History obtained from History obtained from: Patient - History of Present Illness Timing: Today Pain level max: 7 Pain level now: 7 - Additonal information Additional information: 27-year-old female with right-sided pelvic pain today. History of PCOS and has had multiple ovarian cyst in the past. This feels similar. She states was having pain at work so her boss took her to the walk-in clinic. The walk-in clinic sent her here for evaluation. No vaginal bleeding or discharge. No fevers. No chills. No nausea or vomiting. She was given a dose of Toradol at the walk-in clinic and states that she is still having pain. 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 : None HEENT: None Psych: Depression, Anxiety Musculoskeletal: None Derm: None - Past Surgical History Past Surgical History: Yes General: Cholecystectomy Ortho: Arthroscopic surgery HEENT: Tonsil/Adenoidectomy - Present Medications Home Medications: Ambulatory Orders Medication Instructions Recorded Confirmed metFORMIN [Glucophage] 500 mg PO DAILY 11/23/22 11/23/22 oxyCODONE [Roxicodone] 5 - 10 mg PO Q6H PRN #14 tablet 12/11/22 MDD 6 - Allergies Allergies/Adverse Reactions: Allergies Allergy/AdvReac Type Severity Reaction Status Date / Time Penicillins Allergy Hives Verified 12/11/22 15:46 Sulfa (Sulfonamide AdvReac Intermediate Rash Verified 12/11/22 15:46 Antibiotics) - Social History Does the pt smoke?: No Smoking Status: Never smoker Does the pt drink ETOH?: No Does the pt have substance abuse?: No - Immunizations Immunizations are current?: Yes - POLST Patient has POLST: No PD ED PE NORMAL - Vitals Vital signs reviewed: Yes - General General: Alert and oriented X 3, No acute distress - HEENT HEENT: PERRL, Moist mucous membranes - Neck Neck: Supple, no meningeal sign - Cardiac Cardiac: RRR, Strong equal pulses - Respiratory Respiratory: No respiratory distress, Clear bilaterally - Abdomen Abdomen: Normal bowel sounds, Soft, Non distended, Other (Abdomen is soft, nontender nondistended other than tenderness to palpation in the lower right pelvis. No tenderness at McBurney's point. No peritoneal signs) - Back Back: No CVA TTP, No spinal TTP - Derm Derm: Warm and dry - Extremities Extremities: No edema, No calf tenderness / cord - Neuro Neuro: Alert and oriented X 3 - Psych Psych: Normal mood, Normal affect Results - Vitals Vitals: Vital Signs - 24 hr 12/11/22 12/11/22 12/11/22 15:32 17:46 18:46 Temperature 37.1 C Heart Rate 97 71 80 Respiratory 18 18 18 Rate Blood Pressure 129/84 H 132/67 H 120/76 O2 Saturation 99 99 99 Oxygen O2 Source Room air - Labs Labs: Laboratory Tests 12/11/22 12/11/22 12/11/22 16:10 16:10 17:45 WBC 9.0 RBC 4.94 Hgb 11.9 L Hct 39.3 MCV 79.6 L MCH 24.1 L MCHC 30.3 L RDW 14.0 Plt Count 314 MPV 10.7 Neut # (Auto) 5.2 Lymph # (Auto) 3.0 Ramsey # (Auto) 0.7 Eos # (Auto) 0.1 Baso # (Auto) 0.1 Absolute Nucleated RBC 0.00 Nucleated RBC % 0.0 Sodium 139 Potassium 3.7 Chloride 108 Carbon Dioxide 24 Anion Gap 7.0 BUN 19 Creatinine 0.8 Estimated GFR (MDRD) 87 L Glucose 80 Calcium 9.6 Total Bilirubin 0.5 AST 19 ALT 24 Alkaline Phosphatase 51 Total Protein 7.1 Albumin 4.4 Globulin 2.7 Albumin/Globulin Ratio 1.6 Urine Color YELLOW Urine Clarity CLEAR Urine pH 6.0 Ur Specific [place] >=1.030 H Urine Protein 30 H Urine Glucose (UA) NEGATIVE Urine Ketones TRACE Urine Occult Blood SMALL H Urine Nitrite NEGATIVE Urine Bilirubin NEGATIVE Urine Urobilinogen 0.2 (NORMAL) Ur Leukocyte Esterase NEGATIVE Urine RBC 0-5 Urine WBC 0-3 Ur Squamous Epith Cells FEW Squamous Urine Bacteria Rare Urine Mucus Moderate Strands Ur Microscopic Review INDICATED Urine Culture Comments NOT INDICATED Urine HCG, Qual NEGATIVE - Rads (name of study) pelvic US Relevant Findings:: Final report received, See rad report PD Medical Decision Making - ED course Complexity details: reviewed results, re-evaluated patient, considered differential, d/w patient ED course: Patient with right pelvic pain. History of PCOS. Does have mild free fluid in the pelvis. Possible ruptured cyst? Feels similar to prior cyst. No tenderness at McBurney's point or to suggest appendicitis. Patient is well- appearing, nontoxic. Afebrile. Pain well controlled. No indication for CT at this time. No significant lab abnormalities. Patient counseled regarding signs and symptoms for which I believe and urgent re-evaluation would be necessary. Patient with good understanding of and agreement to plan and is comfortable going home at this time This document was made in part using voice recognition software. While efforts are made to proofread this document, sound alike and grammatical errors may occur. EXAM: [id number] US/PELNOBT PROCEDURE: Pelvic w/Transvag+Doppler Comp INDICATIONS: pelvic pain, R TECHNIQUE: Transabdominal/transvaginal ultrasound of the pelvis was obtained. Endovaginal scanning was necessary due to incomplete visualization of the adnexal and endometrial structures by transabdominal scanning. COMPARISON: None. FINDINGS: Uterine size: Uterus measures 7.3 x 3.4 x 5.1 cm, and is anteverted. Myometrium: The myometrium is homogeneous. Endometrium: The endometrium measures 7 mm in combined thickness. Right ovary: The right ovary measures 3.8 x 2.9 x 2.5 cm. Calculated ovarian volume 14.6 cc. Greater than 12 follicles noted Left ovary: The left ovary measures 2.7 x 2.7 x 2.5 cm. Calculated ovarian volume 9.9 cc. Greater than 12 follicles noted Other: Mild fluid within the pelvis IMPRESSION: Greater than 12 follicles in both ovaries, consistent with polycystic ovarian syndrome. Mild free fluid in the pelvis Departure - Departure Disposition: 01 Home, Self Care Clinical Impression: PCOS (polycystic ovarian syndrome) Ovarian cyst Qualifiers: Laterality: right Qualified Code(s): N83.201 - Unspecified ovarian cyst, right side Condition: Good Instructions: ED Cyst Ovarian Follow-Up: Jennyfer Morton ARNP [Provider Admit Priv/Credential] - Within 1 week Prescriptions: oxyCODONE [Roxicodone] 5 - 10 mg PO Q6H PRN #14 tablet MDD 6 PRN Reason: pain Comments: Your prescriptions were sent to [facility] in [place]. Please follow-up with your doctor for further care. Please return if you worsen. This appears to be related to a ruptured ovarian cyst from your PCOS. There is no evidence of appendicitis or ovarian torsion. I am prescribing a short course of narcotic pain medication for you. These are potentially dangerous and addictive medications that should be used carefully. These medications may constipate you. Take an cjet-lrv-fsgmjvs stool softener (docusate) twice daily with plenty of water while taking these medications. If you go 24 hours without a bowel movement, take ohtc-xjw-skujehy miralax, per package instructions. Do not drink or drive while taking these medications. If you received narcotic or sedating medications while in the emergency department, do not drive for 24 hours. Store this medication in a safe, secure place and out of reach of children. It is a violation of federal law to give or sell this medication to another person or to use in a manner other than prescribed. The ED will not refill narcotic prescriptions, including prescriptions lost or stolen. To dispose of unwanted medications: 1. [facility] [address] in [place] has a medication drop box. They accept prescription medications (in pill form) Thursday through Thursday 9:00 a.m. to 5:00 p.m. 2. The [facility] Department accepts prescription medications (in pill form only) for disposal year round. Call for more information. 3. Contact the [facility] for the next [facility] sponsored prescription drug collection event. , [phone], or [phone]; Forms: PCP List Discharge Date/Time: 12/11/22 18:56
--- NOTE | 2022-12-11 17:22 | Ultrasound Report ---
PROCEDURE: Pelvic w/Transvag+Doppler Comp INDICATIONS: pelvic pain, R TECHNIQUE: Transabdominal/transvaginal ultrasound of the pelvis was obtained. Endovaginal scanning wa s necessary due to incomplete visualization of the adnexal and endometrial structures by transabdomin al scanning. COMPARISON: None. FINDINGS: Uterine size: Uterus measures 7.3 x 3.4 x 5.1 cm, and is anteverted. Myometrium: The myometrium is homogeneous. Endometrium: The endometrium measures 7 mm in combined thickness. Right ovary: The right ovary measures 3.8 x 2.9 x 2.5 cm. Calculated ovarian volume 14.6 cc. Great er than 12 follicles noted Left ovary: The left ovary measures 2.7 x 2.7 x 2.5 cm. Calculated ovarian volume 9.9 cc. Greater t staley 12 follicles noted Other: Mild fluid within the pelvis IMPRESSION: Greater than 12 follicles in both ovaries, consistent with polycystic ovarian syndrome. Mild free fluid in the pelvis Reviewed by: Larry Jarrett MD on 12/11/2022 4:20 PM JIMBO Approved by: Larry Jarrett MD on 12/11/2022 4:20 PM JIMBO Station ID: [id number]
[2022-12-11 17:54] LABS: BILIRUBIN,URINE NEGATIVE (NEGATIVE); GLUCOSE, URINE (UA) NEGATIVE (NEGATIVE); KETONES,URINE (UA) TRACE mg/dL (NEGATIVE); LEUKOCYTE ESTERASE, URINE NEGATIVE (NEGATIVE); NITRITE,URINE NEGATIVE (NEGATIVE); OCCULT BLOOD,URINE SMALL (NEGATIVE); PROTEIN,URINE 30 mg/dL (NEGATIVE); UROBILINOGEN,URINE 0.2 (NORMAL) E.U./dL (NORMAL)
[2022-12-11 17:56] LABS: CLARITY,URINE CLEAR (CLEAR); HCG UR QUAL NEGATIVE
[2022-12-11] MEDS ORDERED: MORPHINE 2 MG/ML CARPUJECT IVP STA (17:58)
[2022-12-11 18:12] LABS: BACTERIA,URINE Rare /HPF (None Seen); MUCUS,URINE Moderate Strands; RBC,URINE 0-5 /HPF (0-5); SQUAMOUS EPITHELIAL CELL,UR FEW Squamous (<= Few); WBC,URINE 0-3 /HPF (0-5)
[2022-12-11 18:52] VITALS: BP 120/76
== END 2022-12-11 18:56 | disposition home or self-care (01) ==
LOC: ED 15:31
DX: E28.2 Polycystic ovarian syndrome (principal); N83.201 Unspecified ovarian cyst, right side
CPT/HCPCS: 36415; 76830; 76856; 80053; 81001; 81025; 85025; 93975; 99283; 99284; A9270; 81003; 87086

== ENCOUNTER 2023-03-05 13:56 | Emergency (ER) | payer MEDICAID ==
[2023-03-05] MEDS ORDERED: KETOROLAC 30 MG/ML VIAL IM STA (16:23)
--- NOTE | 2023-03-05 16:25 | ED Physician Documentation ---
PD HPI BACK PAIN - Stated complaint Stated Complaint: LT SIDE LOWER BACK/ABD PX,NAUSEA - Chief complaint Chief Complaint: Back Pain - History obtained from History obtained from: Patient - Additional information Additional information: 27-year-old female with history of PCOS presents with left lower back pain as well as pelvic pain. The patient has frequent pelvic pain secondary to PCOS but this feels somewhat different than normal, and she has never had the pain into her back. Pain in the back feels like a tight "charley horse" or spasm. It does not radiate into the legs, she has no saddle anesthesia, no bowel or bladder changes, no lower extremity weakness or numbness. She is currently On her menses, states her periods are irregular, last one was a couple months ago but typically she does not have any pain with them. She denies any concern for . She Denies any back injuries, no lifting or twisting no falls. She denies any fever or chills, chest pain or difficulty breathing, other abdominal pain, nausea, vomiting, diarrhea, constipation, no dysuria urgency or frequency. As she denies any chance of STI. She has tried Tylenol without relief no NSAIDs. Review of Systems Constitutional: reports: Reviewed and negative Cardiac: reports: Reviewed and negative Respiratory: reports: Reviewed and negative GI: reports: Abdominal Pain. 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 : None HEENT: None Psych: Depression, Anxiety Musculoskeletal: None Derm: None - Past Surgical History Past Surgical History: Yes General: Cholecystectomy Ortho: Arthroscopic surgery HEENT: Tonsil/Adenoidectomy - Present Medications Home Medications: Ambulatory Orders Medication Instructions Recorded Confirmed Cyclobenzaprine [Flexeril] 10 mg PO TID PRN 6 Days #20 tablet 03/05/23 Ibuprofen [Motrin] 600 mg PO Q6H PRN #30 tab 03/05/23 - Allergies Allergies/Adverse Reactions: Allergies Allergy/AdvReac Type Severity Reaction Status Date / Time Penicillins Allergy Hives Verified 03/05/23 14:06 Sulfa (Sulfonamide AdvReac Intermediate Rash Verified 03/05/23 14:06 Antibiotics) - Social History Does the pt smoke?: No Smoking Status: Never smoker Does the pt drink ETOH?: No Does the pt have substance abuse?: No - Immunizations Immunizations are current?: Yes - POLST Patient has POLST: No PD ED PE NORMAL - Vitals Vital signs reviewed: Yes - General General: Alert and oriented X 3, No acute distress, Well developed/nourished - HEENT HEENT: Atraumatic, Moist mucous membranes - Cardiac Cardiac: RRR, No murmur - Respiratory Respiratory: No respiratory distress, Clear bilaterally - Abdomen Abdomen: Normal bowel sounds, Soft, Non tender, Non distended - Back Back: No CVA TTP, No spinal TTP, Other (left lower back paravert muscle ttp) - Derm Derm: Normal color, Warm and dry, No rash - Extremities Extremities: No deformity, No tenderness to palpate, Normal ROM s pain - Neuro Neuro: Alert and oriented X 3 Eye Opening: Spontaneous Motor: Obeys Commands Verbal: Oriented GCS Score: 15 - Psych Psych: Normal mood, Normal affect Results - Vitals Vitals: Vital Signs - 24 hr 03/05/23 03/05/23 13:59 17:28 Temperature 36.5 C Heart Rate 68 81 Respiratory 17 18 Rate Blood Pressure 132/80 H 142/80 H O2 Saturation 97 99 Oxygen O2 Source Room air - Labs Labs: Laboratory Tests 03/05/23 03/05/23 14:00 14:00 Urine Color YELLOW Urine Clarity CLOUDY Urine pH 6.0 Ur Specific [place] >=1.030 H Urine Protein NEGATIVE Urine Glucose (UA) NEGATIVE Urine Ketones NEGATIVE Urine Occult Blood NEGATIVE Urine Nitrite NEGATIVE Urine Bilirubin NEGATIVE Urine Urobilinogen 0.2 (NORMAL) Ur Leukocyte Esterase NEGATIVE Urine RBC None Seen Urine WBC 0-3 Ur Squamous Epith Cells RARE Squamous Amorphous Sediment Marked Urine Bacteria None Seen Ur Microscopic Review INDICATED Urine Culture Comments NOT INDICATED Urine HCG, Qual NEGATIVE PD Medical Decision Making - ED course Complexity details: reviewed old records, reviewed results, re-evaluated patient, considered differential, d/w patient ED course: 27-year-old female who has a history of PCOS and irregular menses, currently on her menstrual period presents with left lower back pain that is spasming in nature. It feels different than her prior bouts of ovarian cyst pain in the does radiate somewhat into the lower pelvis. She was not sure if she is on her menstrual period today as the bleeding was somewhat different than normal. Obtain urinalysis which is negative for signs of infection, she is not . I discussed with patient that I suspect this is her menstrual period and she may be having lower back strain or spasm in addition. Though I have lower suspicion for ovarian torsion given the location of patient's pain I did offer a ultrasound the patient has had several in the past. The patient declined today, and we discussed pain management. We gave her a shot of Toradol. She can be discharged home with as needed muscle relaxers, recommended heating pad, Tylenol or ibuprofen as needed for pain. I discussed return precautions if new or worsening symptoms otherwise she can also follow-up with her PCP. Departure - Departure Disposition: 01 Home, Self Care Clinical Impression: Ovarian cyst Qualifiers: Laterality: bilateral Qualified Code(s): N83.201 - Unspecified ovarian cyst, right side Low back pain Qualifiers: Chronicity: acute Back pain laterality: left Sciatica presence: without sciatica Qualified Code(s): M54.50 - Low back pain, unspecified Condition: Good Instructions: ED Back Care Tips Prescriptions: Cyclobenzaprine [Flexeril] 10 mg PO TID PRN 6 Days #20 tablet PRN Reason: Spasms Ibuprofen [Motrin] 600 mg PO Q6H PRN #30 tab PRN Reason: Pain Comments: Your pain today is likely related to your menstrual period and ovarian cyst though he may also have a low back strain. Please continue the ibuprofen as needed and use a warm compress, also given you Flexeril which is a muscle relaxer that can make you quite tired to use cautiously. If you develop w orsening symptoms return to the other otherwise follow-up with your PCP. Discharge Date/Time: 03/05/23 17:27
[2023-03-05 16:31] LABS: BILIRUBIN,URINE NEGATIVE (NEGATIVE); GLUCOSE, URINE (UA) NEGATIVE (NEGATIVE); KETONES,URINE (UA) NEGATIVE (NEGATIVE); LEUKOCYTE ESTERASE, URINE NEGATIVE (NEGATIVE); NITRITE,URINE NEGATIVE (NEGATIVE); OCCULT BLOOD,URINE NEGATIVE (NEGATIVE); PROTEIN,URINE NEGATIVE (NEGATIVE); UROBILINOGEN,URINE 0.2 (NORMAL) E.U./dL (NORMAL)
[2023-03-05 16:32] LABS: HCG UR QUAL NEGATIVE
[2023-03-05 16:34] LABS: CLARITY,URINE CLOUDY (CLEAR)
[2023-03-05 16:49] LABS: AMORPHOUS SEDIMENT,UR Marked /LPF; BACTERIA,URINE None Seen /HPF (None Seen); RBC,URINE None Seen /HPF (0-5); SQUAMOUS EPITHELIAL CELL,UR RARE Squamous (<= Few); WBC,URINE 0-3 /HPF (0-5)
[2023-03-05 17:36] VITALS: BP 142/80; O2SAT 99
== END 2023-03-05 17:27 | disposition home or self-care (01) ==
LOC: ED 13:56
DX: M54.50 Low back pain, unspecified (principal); N83.201 Unspecified ovarian cyst, right side
CPT/HCPCS: 81001; 81003; 81025; 87086; 96372; 99283

== ENCOUNTER 2023-04-29 16:24 | Emergency (ER) | payer MEDICAID ==
[2023-04-29 17:25] LABS: BASOPHILS # (AUTO) 0.1 10^3/uL (0.0-0.1); BASOPHILS % (AUTO) 0.7 %; EOSINOPHILS # (AUTO) 0.1 10^3/uL (0.0-0.7); EOSINOPHILS % (AUTO) 0.6 %; HCT - HEMATOCRIT 42.7 % (37.0-47.0); HGB - HEMOGLOBIN 13.2 g/dL (12.0-16.0); LYMPHOCYTES # (AUTO) 1.9 10^3/uL (1.5-3.5); LYMPHOCYTES % (AUTO) 18.7 %; MEAN CORPUSCULAR HEMOGLOBIN 24.7 pg (27.0-31.0); MEAN CORPUSCULAR HGB CONC 30.9 g/dL (32.0-36.0); MEAN CORPUSCULAR VOLUME 79.8 fL (81.0-99.0); MEAN PLATELET VOLUME 10.8 fL (7.9-10.8); MONOCYTES # (AUTO) 0.5 10^3/uL (0.0-1.0); MONOCYTES % (AUTO) 5.1 %; NEUTROPHILS # (AUTO) 7.4 10^3/uL (1.5-6.6); NEUTROPHILS % (AUTO) 74.6 %; PLT - PLATELET COUNT 364 10^3/uL (130-450); RED BLOOD COUNT 5.35 10^6/uL (4.20-5.40); RED CELL DISTRIBUTION WIDTH 13.3 % (12.0-15.0); WHITE BLOOD COUNT 9.9 x10^3/uL (4.8-10.8)
[2023-04-29 17:44] LABS: ALBUMIN/GLOBULIN RATIO 1.6 (1.0-2.2); ALKALINE PHOSPHATASE 57 IU/L (42-121); ALT ALANINE AMINOTRANSFERASE 31 IU/L (10-60); AST ASPARTATE AMINOTRANSFERASE 25 IU/L (10-42); BILIRUBIN,TOTAL 0.5 mg/dL (0.2-1.0); BUN - BLOOD UREA NITROGEN 13 mg/dL (6-20); CALCIUM 10.1 mg/dL (8.5-10.3); CARBON DIOXIDE - CO2 25 mmol/L (21-32); CHLORIDE 106 mmol/L (101-111); CREATININE 0.9 mg/dL (0.6-1.3); GFR - MDRD 76 (>89); GLUCOSE 104 mg/dL (74-104); POTASSIUM 3.9 mmol/L (3.5-4.5); SODIUM 140 mmol/L (135-145); TOTAL PROTEIN 8.1 g/dL (6.4-8.9)
[2023-04-29 17:50] LABS: LIPASE < 10 U/L (11-82)
--- NOTE | 2023-04-29 19:39 | ED Physician Documentation ---
History of Present Illness - Stated complaint Stated Complaint: NAUSEA/VOMIT/DIZZY - Chief complaint Chief Complaint: Abd Pain - Additonal information Additional information: 28-year-old female presents emergency department today for nausea vomiting diarrhea dizziness. Patient reports between her boyfriend last night they had about 4 if not more bottles of red wine. She says that she has been having increased nausea vomiting since then couple episodes of diarrhea dark bowel movements and feels like she is having hard time keeping any fluids down. She endorses and mild dizziness is able to ambulate without any difficulty no focal unilateral weakness. 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 : None HEENT: None Psych: Depression, Anxiety Musculoskeletal: None Derm: None - Past Surgical History Past Surgical History: Yes General: Cholecystectomy Ortho: Arthroscopic surgery HEENT: Tonsil/Adenoidectomy - Present Medications Home Medications: Ambulatory Orders Medication Instructions Recorded Confirmed Cyclobenzaprine [Flexeril] 10 mg PO TID PRN 6 Days #20 tablet 03/05/23 Ibuprofen [Motrin] 600 mg PO Q6H PRN #30 tab 03/05/23 - Allergies Allergies/Adverse Reactions: Allergies Allergy/AdvReac Type Severity Reaction Status Date / Time Penicillins Allergy Hives Verified 04/29/23 16:39 Sulfa (Sulfonamide AdvReac Intermediate Rash Verified 04/29/23 16:39 Antibiotics) - Social History Does the pt smoke?: No Smoking Status: Never smoker Does the pt drink ETOH?: No Does the pt have substance abuse?: No - Immunizations Immunizations are current?: Yes - POLST Patient has POLST: No PD ED PE NORMAL - Vitals Vital signs reviewed: Yes - General General: Alert and oriented X 3, No acute distress, Well developed/nourished - HEENT HEENT: Atraumatic, PERRL - Cardiac Cardiac: RRR, No murmur, No gallop - Respiratory Respiratory: No respiratory distress, Clear bilaterally - Abdomen Abdomen: Normal bowel sounds, Non tender - Derm Derm: Normal color, Warm and dry, No rash - Neuro Neuro: Alert and oriented X 3, 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, No motor deficit, Normal speech Eye Opening: Spontaneous Motor: Obeys Commands Verbal: Oriented GCS Score: 15 - Psych Psych: Normal mood, Normal affect Results - Vitals Vitals: Vital Signs - 24 hr 04/29/23 04/29/23 04/29/23 16:34 19:41 21:00 Temperature 36.8 C 36.6 C 36.7 C Heart Rate 104 H 100 73 Respiratory 16 18 16 Rate Blood Pressure 145/89 H 144/91 H 128/88 H O2 Saturation 100 90 L 100 04/29/23 04/29/23 21:30 21:31 Temperature 36.4 C L 36.4 C L Heart Rate 67 67 Respiratory 16 16 Rate Blood Pressure 138/82 H 138/82 H O2 Saturation 100 100 Oxygen O2 Source Room air - Labs Labs: Microbiology 04/29/23 20:21 Occult Blood - Final Stool Laboratory Tests 04/29/23 04/29/23 04/29/23 17:20 17:20 20:00 WBC 9.9 RBC 5.35 Hgb 13.2 Hct 42.7 MCV 79.8 L MCH 24.7 L MCHC 30.9 L RDW 13.3 Plt Count 364 MPV 10.8 Neut # (Auto) 7.4 H Lymph # (Auto) 1.9 [place] # (Auto) 0.5 Eos # (Auto) 0.1 Baso # (Auto) 0.1 Absolute Nucleated RBC 0.00 Nucleated RBC % 0.0 Sodium 140 Potassium 3.9 Chloride 106 Carbon Dioxide 25 Anion Gap 9.0 BUN 13 Creatinine 0.9 Estimated GFR (MDRD) 76 L Glucose 104 Calcium 10.1 Total Bilirubin 0.5 AST 25 ALT 31 Alkaline Phosphatase 57 Total Protein 8.1 Albumin 5.0 Globulin 3.1 Albumin/Globulin Ratio 1.6 Lipase < 10 L Urine Color DARK YELLOW Urine Clarity CLEAR Urine pH 6.5 Ur Specific [place] 1.025 Urine Protein TRACE Urine Glucose (UA) NEGATIVE Urine Ketones NEGATIVE Urine Occult Blood TRACE-INTA Urine Nitrite NEGATIVE Urine Bilirubin NEGATIVE Urine Urobilinogen 1 (NORMAL) Ur Leukocyte Esterase NEGATIVE Ur Microscopic Review NOT INDICATED Urine Culture Comments NOT INDICATED PD Medical Decision Making - ED course ED course: 28-year-old female here for nausea vomiting diarrhea and dizziness. I think that the symptoms she is experiencing is most likely due to a hangover. She said that she had a dark black bowel movement, stool guaiac was negative for any blood patient was informed that this most likely due to the red wine that she was consuming and large consumption overnight. She has no anemia no leukocytosis her electrolytes are within normal limits her urine is not indicative of any UTI. There is no further workup or emergent needs at this time. Patient says that she feels significantly better after getting 1 L of IV fluids and Zofran she is able to keep down p.o. intake without difficulties and was counseled to consume small amounts of alcohol in 1 setting in the future. Departure - Departure Disposition: 01 Home, Self Care Clinical Impression: Nausea vomiting and diarrhea Instructions: ED Nausea Vomiting Comments: Thank you for trusting us with your care. I believe that the signs symptoms that you are experiencing in relation to your nausea vomiting diarrhea are due to a hangover. We have given you some Zofran to help with your nausea vomiting and also sent some Zofran for you to take home. You can take 1 pill every 8 hours. Ensure that you are drinking plenty of fluids going home. Your stool did not have any blood in it dark bowel movements are very common to have after drinking dark wine. Make sure that you are eating a bland diet avoiding sugary or overly processed food to help with recovery. Forms: PCP List Discharge Date/Time: 04/29/23 21:48
[2023-04-29] MEDS: ONDANSETRON 4 MG/2 ML VIAL IVP STA (20:03)
[2023-04-29 20:13] LABS: BILIRUBIN,URINE NEGATIVE (NEGATIVE); GLUCOSE, URINE (UA) NEGATIVE (NEGATIVE); KETONES,URINE (UA) NEGATIVE (NEGATIVE); LEUKOCYTE ESTERASE, URINE NEGATIVE (NEGATIVE); NITRITE,URINE NEGATIVE (NEGATIVE); OCCULT BLOOD,URINE TRACE-INTA (NEGATIVE); PH,URINE 6.5 PH (5.0-7.5); PROTEIN,URINE TRACE mg/dL (NEGATIVE); UROBILINOGEN,URINE 1 (NORMAL) E.U./dL (NORMAL)
[2023-04-29 20:14] LABS: CLARITY,URINE CLEAR (CLEAR)
[2023-04-29 21:08] VITALS: O2SAT 100
[2023-04-29] MEDS: SODIUM CHLORIDE 0.9% 1,000 ML IV ONE (21:25)
[2023-04-29 21:35] VITALS: BP 138/82
[2023-04-29] MEDS ORDERED: ONDANSETRON ODT 4 MG Prepack 2 TL PRN (21:46)
== END 2023-04-29 21:48 | disposition home or self-care (01) ==
LOC: ED 16:24
DX: R11.2 Nausea with vomiting, unspecified (principal); R19.7 Diarrhea, unspecified; R42 Dizziness and giddiness
CPT/HCPCS: 36415; 80053; 81001; 81003; 82272; 83690; 85025; 87086; 96374; 99283

== ENCOUNTER 2023-05-19 10:48 | Outpatient (CLI) | payer MEDICAID ==
[2023-05-19 11:02] LABS: BASOPHILS # (AUTO) 0.1 10^3/uL (0.0-0.1); BASOPHILS % (AUTO) 1.3 %; EOSINOPHILS # (AUTO) 0.2 10^3/uL (0.0-0.7); EOSINOPHILS % (AUTO) 2.7 %; HCT - HEMATOCRIT 41.9 % (37.0-47.0); HGB - HEMOGLOBIN 12.9 g/dL (12.0-16.0); LYMPHOCYTES # (AUTO) 3.1 10^3/uL (1.5-3.5); LYMPHOCYTES % (AUTO) 41.7 %; MEAN CORPUSCULAR HEMOGLOBIN 24.9 pg (27.0-31.0); MEAN CORPUSCULAR HGB CONC 30.8 g/dL (32.0-36.0); MEAN CORPUSCULAR VOLUME 80.7 fL (81.0-99.0); MEAN PLATELET VOLUME 10.5 fL (7.9-10.8); MONOCYTES # (AUTO) 0.7 10^3/uL (0.0-1.0); MONOCYTES % (AUTO) 8.8 %; NEUTROPHILS # (AUTO) 3.4 10^3/uL (1.5-6.6); NEUTROPHILS % (AUTO) 45.2 %; PLT - PLATELET COUNT 362 10^3/uL (130-450); RED BLOOD COUNT 5.19 10^6/uL (4.20-5.40); RED CELL DISTRIBUTION WIDTH 13.1 % (12.0-15.0); WHITE BLOOD COUNT 7.5 x10^3/uL (4.8-10.8)
[2023-05-19 11:17] LABS: ALBUMIN 4.4 g/dL (3.2-5.5); ALBUMIN/GLOBULIN RATIO 1.5 (1.0-2.2); ALKALINE PHOSPHATASE 57 IU/L (42-121); ALT ALANINE AMINOTRANSFERASE 30 IU/L (10-60); AST ASPARTATE AMINOTRANSFERASE 20 IU/L (10-42); BILIRUBIN,TOTAL 0.4 mg/dL (0.2-1.0); BUN - BLOOD UREA NITROGEN 18 mg/dL (6-20); CALCIUM 9.9 mg/dL (8.5-10.3); CARBON DIOXIDE - CO2 22 mmol/L (21-32); CHLORIDE 110 mmol/L (101-111); CHOL/HDL RATIO 4.6 (<4.4); CHOLESTEROL 195 mg/dL; CREATININE 0.8 mg/dL (0.6-1.3); GFR - MDRD 87 (>89); GLUCOSE 96 mg/dL (74-104); HDL CHOLESTEROL 42 mg/dL; LDL CHOLESTEROL,CALCULATED 125 mg/dL; POTASSIUM 3.7 mmol/L (3.5-4.5); SODIUM 139 mmol/L (135-145); TOTAL PROTEIN 7.4 g/dL (6.4-8.9); TRIGLYCERIDES 141 mg/dL (48-352); VLDL CHOLESTEROL 28 mg/dL
[2023-05-19 11:32] LABS: THYROID STIMULATING HORMONE 3.37 uIU/mL (0.34-5.60)
--- NOTE | 2023-05-19 15:39 | XRAY Report ---
PROCEDURE: Lumbar Spine 4V INDICATIONS: LOW BACK PAIN TECHNIQUE: 4 views of the lumbar spine were acquired. COMPARISON: None. FINDINGS: Bones: 5 [id number] vertebrae are present. There is mild levoscoliosis of lumbar spine with ap ex at L2 level.. No vertebral body compression fractures. No suspicious bony lesions. Oblique view s shows no pars defects. Soft tissues: Overlying bowel gas pattern is normal. No suspicious soft tissue calcifications. IMPRESSION: Mild levoscoliosis as above. No acute compression fracture or spondylolisthesis. No gross pars defect s. Reviewed by: Grey Rose MD on 05/19/2023 3:38 PM PDT Approved by: Grey Rose MD on 05/19/2023 3:38 PM PDT Station ID: [id number]
== END 2023-05-19 10:49 | disposition home or self-care (01) ==
LOC: LAB 10:48 → DI 10:49
PROVIDERS: ATTEND Nurse Practitioner Family
DX: M41.9 Scoliosis, unspecified (principal); M54.50 Low back pain, unspecified; R03.0 Elevated blood-pressure reading, without diagnosis of hypertension; E66.9 Obesity, unspecified; Z68.42 Body mass index [BMI] 45.0-49.9, adult
CPT/HCPCS: 36415; 80050; 80061; 83721

== ENCOUNTER 2023-05-22 08:00 | Outpatient (CLI) | payer MEDICAID ==
[2023-05-22 20:17] LABS: CHLAMYDIA TRACHOMATIS DNA NEGATIVE (NEGATIVE); NEISSERIA GONORRHOEAE DNA NEGATIVE (NEGATIVE)
[2023-05-22 21:32] LABS: BACTERIAL VAGINOSIS DNA NEGATIVE (NEGATIVE); CANDIDA GLABRATA DNA NEGATIVE (NEGATIVE); CANDIDA GROUP DNA POSITIVE (NEGATIVE); CANDIDA KRUSEI DNA NEGATIVE (NEGATIVE); TRICHOMONAS VAGINALIS DNA NEGATIVE (NEGATIVE)
== END 2023-05-22 23:59 | disposition home or self-care (01) ==
LOC: LAB.WC 08:00
PROVIDERS: ATTEND Nurse Practitioner
DX: N89.8 Other specified noninflammatory disorders of vagina (principal)
CPT/HCPCS: 81514; 87491; 87591; 87661

== ENCOUNTER 2023-07-11 15:14 | Outpatient (CLI) | payer MEDICAID | END 2023-07-11 23:59 | disposition critical access hospital (66) | LOC: EMS 15:14 | DX: R07.89 Other chest pain (principal); R20.2 Paresthesia of skin; R06.00 Dyspnea, unspecified; R00.0 Tachycardia, unspecified | CPT/HCPCS: A0425; A0429; A0999 ==

== ENCOUNTER 2023-07-11 15:43 | Emergency (ER) | payer MEDICAID ==
--- NOTE | 2023-07-11 15:51 | ED Physician Documentation ---
PD HPI CHEST PAIN - Stated complaint Stated Complaint: CHEST TIGHTNESS - History obtained from History obtained from: Patient - Additional information Additional information: She has a history of PCOS. Otherwise is pretty healthy. Does not smoke. Does not know much about her family history with regard to heart issues, but it does sound like maybe her father had a heart attack at a relatively young age. She is been having ongoing back pain since February due to an L&I accident. It ramped up this week but it is really not different than her prior back pain. Today she developed chest tightness and shortness of breath that is much better on arrival here. She denies pedal edema, calf pain. She is not on control. No possibility of . No personal history of heart or lung problems. 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 [employer]: Ovarian cysts : None HEENT: None Psych: Depression, Anxiety Musculoskeletal: None Derm: None - Past Surgical History Past Surgical History: Yes General: Cholecystectomy Ortho: Arthroscopic surgery HEENT: Tonsil/Adenoidectomy - Present Medications Home Medications: Ambulatory Orders Medication Instructions Recorded Confirmed Ibuprofen [Motrin] 600 mg PO Q6H PRN #30 tab 03/05/23 07/11/23 Meloxicam 15 mg PO DAILY PRN 07/11/23 07/11/23 methocarbamoL [Methocarbamol] 500 mg PO Q8HR PRN 07/11/23 07/11/23 - Allergies Allergies/Adverse Reactions: Allergies Allergy/AdvReac Type Severity Reaction Status Date / Time Penicillins Allergy Hives Verified 07/11/23 15:50 Sulfa (Sulfonamide AdvReac Intermediate Rash Verified 07/11/23 15:50 Antibiotics) - Social History Does the pt smoke?: No Smoking Status: Never smoker Does the pt drink ETOH?: No Does the pt have substance abuse?: No - Immunizations Immunizations are current?: Yes - POLST Patient has POLST: No PD ED PE NORMAL - Vitals Vital signs reviewed: Yes - General General: Alert and oriented X 3, No acute distress - Cardiac Cardiac: RRR, No murmur - Respiratory Respiratory: No respiratory distress, Clear bilaterally - Abdomen Abdomen: Non tender - Back Back: No CVA TTP, No spinal TTP - Extremities Extremities: No edema, No calf tenderness / cord - Neuro Neuro: Alert and oriented X 3, Normal speech Results - Vitals Vitals: Vital Signs - 24 hr 07/11/23 07/11/23 15:50 16:28 Temperature 37 C Heart Rate 88 91 Respiratory 22 15 Rate Blood Pressure 101/82 H 104/97 H O2 Saturation 100 100 Oxygen O2 Source Room air - EKG (time done) 1550 EKG releavant findings:: EKG personally interpreted by author of this note. Relevant findings are: Rate: Rate (enter#) (84) Rhythm: NSR [place]: Normal Intervals: Normal HI QRS: Normal Ischemia: Normal ST segments, Other (Flat inferior T waves) - Labs Labs: Laboratory Tests 07/11/23 07/11/23 16:16 16:40 WBC 8.2 RBC 4.52 Hgb 11.1 L Hct 36.6 L MCV 81.0 MCH 24.6 L MCHC 30.3 L RDW 12.9 Plt Count 319 MPV 10.7 Neut # (Auto) 4.5 Lymph # (Auto) 2.8 [place] # (Auto) 0.7 Eos # (Auto) 0.1 Baso # (Auto) 0.1 Absolute Nucleated RBC 0.00 Nucleated RBC % 0.0 Sodium 136 Potassium 4.2 Chloride 106 Carbon Dioxide 23 Anion Gap 7.0 BUN 21 H Creatinine 0.8 Estimated GFR (MDRD) 87 L Glucose 88 Calcium 9.9 Total Bilirubin 0.4 AST 29 ALT 31 Alkaline Phosphatase 52 Troponin I High Sens 3.2 Total Protein 7.3 Albumin 4.4 Globulin 2.9 Albumin/Globulin Ratio 1.5 Lipase 11 - Rads (name of study) Single view chest x-ray is unremarkable except low lung volumes Relevant Findings:: Final report received, EMP independent interpretation of test PD Medical Decision Making - ED course ED course: Although she did have back pain with it, I am very much nonsuspicious of dissection given the relatively minor pain at this point, lack of vascular abnormality on exam (equal radial pulses and good pedal pulses, and the back pain is a subacute to chronic issue related to an L&I accident several months ago. PE is considered but she is PERC negative. Heart score 1 for family history. CBC showing mild anemia. CMP and troponin negative. Departure - Departure Disposition: 01 Home, Self Care Clinical Impression: Chest pain Condition: Good Record reviewed to determine appropriate education?: Yes Instructions: ED Chest Pain NonCardiac Comments: Your heart testing is normal/negative. Call your doctor to arrange a follow-up appointment, make the next available appointment. In the interim, return anytime if worse or if new symptoms develop.
[2023-07-11 15:59] VITALS: O2SAT 100
--- NOTE | 2023-07-11 16:14 | XRAY Report ---
PROCEDURE: Chest 1V INDICATIONS: Chest Pain TECHNIQUE: One view of the chest was acquired. COMPARISON: 02/15/2017 FINDINGS: Surgical changes and devices: None. Lungs and pleura: An incomplete inspiratory result is noted, with low lung volumes and crowding of t he vascular markings. No focal infiltrates are seen. No large pneumothorax or large pleural effusion can be seen. Mediastinum: Mediastinal contours appear normal. Heart size is normal. Bones and chest wall: No suspicious bony lesions. Overlying soft tissues appear unremarkable. IMPRESSION: Low lung volumes, without an acute cardiopulmonary abnormality seen. Please consider a short-term follow-up 2 view chest series (performed in deep inspiration) for furthe r evaluation. Reviewed by: Chirag Oropeza MD on 07/11/2023 3:13 PM JIMBO Approved by: Chirag Oropeza MD on 07/11/2023 3:13 PM JIMBO Station ID: [id number]
[2023-07-11 16:44] LABS: TROPONIN I HIGH SENSITIVITY 3.2 ng/L (2.3-14.8)
[2023-07-11 16:45] LABS: BASOPHILS # (AUTO) 0.1 10^3/uL (0.0-0.1); BASOPHILS % (AUTO) 0.6 %; EOSINOPHILS # (AUTO) 0.1 10^3/uL (0.0-0.7); EOSINOPHILS % (AUTO) 1.7 %; HCT - HEMATOCRIT 36.6 % (37.0-47.0); HGB - HEMOGLOBIN 11.1 g/dL (12.0-16.0); LYMPHOCYTES # (AUTO) 2.8 10^3/uL (1.5-3.5); LYMPHOCYTES % (AUTO) 34.5 %; MEAN CORPUSCULAR HEMOGLOBIN 24.6 pg (27.0-31.0); MEAN CORPUSCULAR HGB CONC 30.3 g/dL (32.0-36.0); MEAN PLATELET VOLUME 10.7 fL (7.9-10.8); MONOCYTES # (AUTO) 0.7 10^3/uL (0.0-1.0); MONOCYTES % (AUTO) 8.6 %; NEUTROPHILS # (AUTO) 4.5 10^3/uL (1.5-6.6); NEUTROPHILS % (AUTO) 54.4 %; PLT - PLATELET COUNT 319 10^3/uL (130-450); RED BLOOD COUNT 4.52 10^6/uL (4.20-5.40); RED CELL DISTRIBUTION WIDTH 12.9 % (12.0-15.0); WHITE BLOOD COUNT 8.2 x10^3/uL (4.8-10.8)
[2023-07-11 16:48] LABS: ALBUMIN 4.4 g/dL (3.2-5.5); ALBUMIN/GLOBULIN RATIO 1.5 (1.0-2.2); BILIRUBIN,TOTAL 0.4 mg/dL (0.2-1.0); CALCIUM 9.9 mg/dL (8.5-10.3); CREATININE 0.8 mg/dL (0.6-1.3); TOTAL PROTEIN 7.3 g/dL (6.4-8.9)
[2023-07-11 16:57] LABS: POTASSIUM 4.2 mmol/L (3.5-4.5)
[2023-07-11 17:22] VITALS: BP 111/67
--- NOTE | 2023-07-12 11:09 | ED Physician Documentation ---
ED Addendum - Addendum Addendum: 07/12/23 11:08 L&I [place] [id number] completed and submitted. I did check the box that it was likely not a work-related injury. She had atraumatic chest pain.
== END 2023-07-11 17:15 | disposition home or self-care (01) ==
LOC: EDUNIT# → ED 15:43
DX: R07.9 Chest pain, unspecified (principal); E28.2 Polycystic ovarian syndrome
CPT/HCPCS: 36415; 80053; 83690; 84484; 85025; 93005; 99284

== ENCOUNTER 2023-09-14 08:55 | Outpatient (CLI) | payer MEDICAID | END 2023-09-14 08:56 | disposition home or self-care (01) | LOC: NS 08:55 | PROVIDERS: ATTEND Family Medicine | DX: Z53.9 Procedure and treatment not carried out, unspecified reason (principal) ==

== ENCOUNTER 2023-09-21 10:15 | Outpatient (CLI) | payer MEDICAID | END 2023-09-21 10:16 | disposition home or self-care (01) | LOC: NS 10:15 | PROVIDERS: ATTEND Family Medicine | DX: Z71.3 Dietary counseling and surveillance (principal); E78.5 Hyperlipidemia, unspecified; Z68.42 Body mass index [BMI] 45.0-49.9, adult | CPT/HCPCS: 97802 ==

== ENCOUNTER 2023-10-06 10:50 | Outpatient (CLI) | payer MEDICAID | END 2023-10-06 10:51 | disposition home or self-care (01) | LOC: NS 10:50 | PROVIDERS: ATTEND Family Medicine | DX: Z71.3 Dietary counseling and surveillance (principal); E78.5 Hyperlipidemia, unspecified | CPT/HCPCS: 97803 ==

== ENCOUNTER 2023-11-11 19:27 | Emergency (ER) | payer OTHER, MEDICAID ==
--- NOTE | 2023-11-11 20:30 | XRAY Report ---
PROCEDURE: Wrist 3+V LT INDICATIONS: PAIN/TENDERNESS LWRIST...WORK RELATED TECHNIQUE: 3 views of the wrist were acquired. COMPARISON: None. FINDINGS: Please note that these images do not represent true AP or oblique views. Within this limitation, no a cute fracture or dislocation. The joint spaces are preserved. IMPRESSION: No acute fracture or dislocation of the left wrist. Reviewed by: Franky Hameed MD on 11/11/2023 8:29 PM PDT Approved by: Franky Hameed MD on 11/11/2023 8:29 PM PDT Station ID: [id number]
--- NOTE | 2023-11-12 | ED Physician Documentation ---
History of Present Illness - Stated complaint Stated Complaint: LT HAND INJ - Chief complaint Chief Complaint: Ext Problem - History obtained from History obtained from: Patient - Additonal information Additional information: 28-year-old woman presents after middle case fell on her left forearm and wrist while at work at 5:15 PM. She is right-hand dominant. Denies other injury. 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 : None HEENT: None Psych: Depression, Anxiety Musculoskeletal: None Derm: None - Past Surgical History Past Surgical History: Yes General: Cholecystectomy Ortho: Arthroscopic surgery HEENT: Tonsil/Adenoidectomy - Present Medications Home Medications: Ambulatory Orders Medication Instructions Recorded Confirmed Pnv 119/Iron Fum/Folic Acid 1 tab PO DAILY 11/11/23 [ 19 Tablet] - Allergies Allergies/Adverse Reactions: Allergies Allergy/AdvReac Type Severity Reaction Status Date / Time Penicillins Allergy Hives Verified 11/11/23 20:03 Sulfa (Sulfonamide AdvReac Intermediate Rash Verified 11/11/23 20:03 Antibiotics) - Social History Does the pt smoke?: No Smoking Status: Never smoker Does the pt drink ETOH?: No Does the pt have substance abuse?: No - Immunizations Immunizations are current?: Yes - POLST Patient has POLST: No PD ED PE NORMAL - Vitals Vital signs reviewed: Yes - General General: Alert and oriented X 3, No acute distress, Well developed/nourished - Derm Derm: Normal color, Warm and dry - Extremities Extremities: No deformity, Other (Decreased range of motion of left wrist. Tender to palpation along radial and ulnar aspect of left breast. Nontender on forearm. Nontender to hand. CSM intact left upper extremity) - Neuro Neuro: No motor deficit, No sensory deficit Results - Vitals Vitals: Vital Signs - 24 hr 11/11/23 11/11/23 19:55 22:36 Temperature 36.7 C Heart Rate 94 73 Respiratory 17 Rate Blood Pressure 153/88 H 122/71 O2 Saturation 99 100 Oxygen O2 Source Room air PD Medical Decision Making - ED course ED course: 28-year-old woman presents with left wrist and forearm pain after a metal piece fell on it today. She has no visible deformity or injury to the wrist however she has pain with range of motion of the wrist and with palpation. Her x-ray is benign. Symptomatic care discussed and return precautions given. Plan to follow-up outpatient with orthopedics in 10 days if no improvement. Departure - Departure Disposition: 01 Home, Self Care Clinical Impression: Forearm pain
[2023-11-12] MEDS: KETOROLAC 30 MG/ML VIAL IM STA (00:15)
[2023-11-12 00:25] VITALS: BP 124/68; O2SAT 98
== END 2023-11-12 00:17 | disposition home or self-care (01) ==
LOC: ED 19:27
DX: M79.632 Pain in left forearm (principal); M25.532 Pain in left wrist; W20.8XXA Other cause of strike by thrown, projected or falling object, initial encounter; Y99.0 Civilian activity done for income or pay
CPT/HCPCS: 1040M; 73110; 99283